=== PATIENT | female | born 1960 | race Caucasian/White ===

== ENCOUNTER 2018-11-27 22:03 | Emergency (ER) | payer MEDICARE ==
[~2018-11-27] VITALS: Ht 157.5 cm; Wt 54.4 kg
[~2018-11-27 22:03] MED LIST: ALLOPURINOL 30300 M3 PO; AMBIEN 10 MG TA10 MG PO; AMBIEN 5 MG TABL5 M1 PO; ASPIRIN81 M2 PO; ATIVAN0.5 MG PO; ATIVAN1 MG PO; AZITHROMYCIN 2250 MG PO; BENADRYL25 MG PO; COMPAZINE10 MG PO; DOXYCYCLINE 10100 M2 PO; DOXYCYCLINE 10100 MG PO; EFFEXOR XR75 MG PO; EXCEDRIN CAPLE1 EACH PO; HYDROXYZINE HCL25 M1 PO; KEPPRA 500 MG500 M1 PO; LASIX 20 MG TAB20 MG PO; LEVOTHYROXIN0.112 M1 PO; LEVOTHYROXIN0.125 M1 PO; LEVOTHYROXINE 0.1 MG PO; LEVOTHYROXINE0.05 MG PO; LISINOPRIL20 MG PO; LOPERAMIDE 2 MG2 M1 PO; LOPRESSOR25 PO; LORAZEPAM 1 MG T1 M1 PO; LYRICA100 MG PO; METAXALONE800 MG; METHADONE HCL5 MG PO; MIRTAZAPINE45 MG PO; NIFEDICAL XL30 MG PO; NORVASC10 MG PO; OXCARBAZEPINE150 MG PO; PERCOCET 5-3251 EACH PO; PERCOCET PO; PHENERGAN 25 MG25 M1 PO; PRILOSEC 20 MG20 MG PO; PROTONIX40 M4 PO; SIMVASTATIN40 MG PO; SKELAXIN 800 M800 M1 PO; TRILEPTAL150 MG PO; TRINATE TABLET1 TAB PO; VENLAFAXINE HCL75 M2 PO; VITAMIN B-1100 M1 PO; ZOFRAN4 MG PO
[2018-11-27] MEDS ORDERED: PLAVIX 75 MG TA75 MG PO (22:14)
[2018-11-27] MEDS ORDERED: EDLUAR10 MG SUBLING (22:14)
[2018-11-27] MEDS ORDERED: BENTYL 10 MG CA10 M1 PO (22:14)
[2018-11-27 22:40] LABS: ABSOLUTE LYMPHOCYTES 1.3 thou/uL (0.8-5.3); ABSOLUTE NEUTROPHILS 7.3 thou/uL (1.6-8.1); BASOPHILS 0.2 %; EOSINOPHILS 0.1 %; HEMATOCRIT 48.4 % (37.0-47.0); HEMOGLOBIN 16.6 gm/dL (12.0-15.0); LYMPHOCYTES 13.7 %; MCH 32.8 pg (26.0-34.0); MCHC 34.3 g/dL (28.0-37.0); MCV 95.8 fL (80.0-100.0); MONOCYTES 10.1 %; MPV 8.2 fl. (7.2-11.1); NUCLEATED RBCS 0 /100WBC; PLATELET COUNT* 385 thou/uL (150-400); POLYS 75.9 %; RBC 5.06 mil/uL (4.20-5.00); RDW-CV 14.4 % (10.5-14.5); WBC 9.7 thou/uL (4.0-11.0)
[2018-11-27 22:50] LABS: CALCIUM 9.4 mg/dL (8.5-10.1); CREATININE 1.1 mg/dL (0.6-1.3); POTASSIUM 3.9 mmol/L (3.5-5.1)
[2018-11-27 22:52] LABS: PROTIME 10.2 Seconds (9.20-11.50)
[2018-11-27 22:54] LABS: TOTAL PROTEIN 8.3 g/dL (6.4-8.2)
[2018-11-28 01:41] LABS: URINE BILIRUBIN NEGATIVE (Negative); URINE BLOOD NEGATIVE (Negative); URINE CLARITY CLEAR; URINE COLOR YELLOW; URINE GLUCOSE-RANDOM NEGATIVE (Negative); URINE KETONES TRACE (Negative); URINE LEUKOCYTES-REFLEX TRACE (Negative); URINE NITRITE-REFLEX NEGATIVE (Negative); URINE PROTEIN TRACE (Negative); URINE SPECIFIC GRAVITY <= 1.005 (1.005-1.030); URINE UROBILINOGEN 0.2 E.U./dl (0.2-1.0)
[2018-11-28 01:50] LABS: BACTERIA-REFLEX >30 Many /HPF (None Seen); CASTS None Seen /LPF (None Seen); CRYSTALS None Seen /LPF (None Seen); MUCUS 0-3 Light strn/LPF (None Seen); SQUAMOUS 4-10 Moderate /LPF (0-3); TRANSITIONAL EPITHEL CELL 0-3 Few /LPF (None Seen); URINE RBC 3-10 Few /HPF (0-2); URINE WBC-REFLEX 6-15 Few /HPF (0-5)
[2018-11-28] MEDS ORDERED: PROMS25 WY RECTAL (01:58)
[2018-11-28] MEDS ORDERED: CIPROFLOXACIN500 M1 PO (01:58)
[2018-11-28] MEDS ORDERED: COMPAZINE10 MG PO ×4 (01:58→02:05)
[2018-11-28] MEDS ORDERED: CARAFATE 1 GM TA1 GM PO (01:58)
[2018-11-28 02:25] VITALS: BP 136/99
--- NOTE | 2018-11-28 17:18 | EKG ---
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
== END 2018-11-28 02:25 | disposition home or self-care (01) ==
LOC: M.ERS 22:03
PROVIDERS: Emergency Medicine
DX: K29.70 Gastritis, unspecified, without bleeding (principal); N39.0 Urinary tract infection, site not specified; I10 Essential (primary) hypertension; E03.9 Hypothyroidism, unspecified; F32.9 Major depressive disorder, single episode, unspecified; F41.9 Anxiety disorder, unspecified; E78.5 Hyperlipidemia, unspecified; F17.200 Nicotine dependence, unspecified, uncomplicated; Z98.890 Other specified postprocedural states; Z88.0 Allergy status to penicillin; Z88.2 Allergy status to sulfonamides; Z88.1 Allergy status to other antibiotic agents; Z88.8 Allergy status to other drugs, medicaments and biological substances

== ENCOUNTER 2019-01-11 00:42 | Emergency (ER) | payer MEDICARE ==
[~2019-01-11] VITALS: Ht 160 cm; Wt 57.8 kg
[~2019-01-11 00:42] MED LIST changes: +BENTYL 10 MG CA10 M1 PO; +CARAFATE 1 GM TA1 GM PO; +CIPROFLOXACIN500 M1 PO; +EDLUAR10 MG SUBLING; +PLAVIX 75 MG TA75 MG PO; +PROMS25 WY RECTAL
[2019-01-11] MEDS ORDERED: KEPPRA100 MG/1 M PO (00:55)
[2019-01-11] MEDS ORDERED: LEVO-T25 MCG PO (00:55)
[2019-01-11] MEDS ORDERED: ONDANSETRON HCL4 M3 PO (00:56)
[2019-01-11 01:30] LABS: ABSOLUTE BASOPHILS 0.1 thou/uL (0.0-0.2); ABSOLUTE EOSINOPHILS 0.2 thou/uL (0.0-0.7); ABSOLUTE LYMPHOCYTES 1.5 thou/uL (0.8-5.3); ABSOLUTE MONOCYTES 0.6 thou/uL (0.0-1.2); ABSOLUTE NEUTROPHILS 2.8 thou/uL (1.6-8.1); BASOPHILS 1.1 %; EOSINOPHILS 4.7 %; HEMATOCRIT 35.6 % (37.0-47.0); LYMPHOCYTES 29.4 %; MCH 33.1 pg (26.0-34.0); MCHC 33.8 g/dL (28.0-37.0); MCV 97.9 fL (80.0-100.0); MONOCYTES 11.1 %; MPV 7.8 fl. (7.2-11.1); NUCLEATED RBCS 0 /100WBC; PLATELET COUNT* 223 thou/uL (150-400); POLYS 53.7 %; RBC 3.64 mil/uL (4.20-5.00); RDW-CV 15.5 % (10.5-14.5); WBC 5.1 thou/uL (4.0-11.0)
[2019-01-11 01:37] LABS: CREATININE 1.2 mg/dL (0.6-1.3); POTASSIUM 3.9 mmol/L (3.5-5.1)
[2019-01-11 04:43] VITALS: BP 140/109
== END 2019-01-11 04:44 | disposition home or self-care (01) ==
LOC: M.ERS 00:42
PROVIDERS: Emergency Medicine
DX: S30.1XXA Contusion of abdominal wall, initial encounter (principal); I10 Essential (primary) hypertension; Z88.0 Allergy status to penicillin; Z88.2 Allergy status to sulfonamides; Z88.1 Allergy status to other antibiotic agents; Z88.8 Allergy status to other drugs, medicaments and biological substances; W18.39XA Other fall on same level, initial encounter; Y93.89 Activity, other specified; Y92.89 Other specified places as the place of occurrence of the external cause; Y99.8 Other external cause status

== ENCOUNTER 2019-04-17 18:04 | Inpatient (IN) | payer MEDICARE, OTHER, MEDICAID ==
[~2019-04-17] VITALS: Ht 162.6 cm; Wt 62.8 kg
--- NOTE | ~2019-04-17 | CON ---
[facility] [address] [place] [address] CONSULTATION Name: JAROD GANDARA Renetta Room: [address] IN .R.#: [id number] Admission: 04/17/19 Attend Phys: Kelly Rowe Discharge: Date of : 62 Report #: [id number] THIS REPORT FOR: //name// cc: Edin Silveira MD, Bruce D. MD ~ THIS REPORT FOR: //name// CC: Edin Leonard DATE OF SERVICE: 04/19/2019 NEPHROLOGY CONSULTATION CONSULTING PHYSICIAN: Jerrica Leonard MD REASON FOR NEPHROLOGY CONSULTATION: Acute kidney injury. REASON FOR ADMISSION: Dehydration. HISTORY OF PRESENT ILLNESS: The patient is a 58-year-old female with past medical history of hypertension, VA, acute kidney injury because of dehydration in the past, TIA, Cecille-en-Y gastric bypass and hypothyroidism, has chronic nausea and diarrhea and at times vomiting, came in with generalized weakness. The patient has some chronic abdominal pain and chronic diarrhea and was not able to keep anything down. Hence, she came to the hospital and she was found to be hyponatremic, hypokalemic and an acute kidney injury. Creatinine was 3.4 on admission. Her baseline creatinine was around 1.2 in 12/2018. She was started on IV fluids and creatinine is improving. She also feels better. Renal imaging was negative. She does not take any NSAIDs at home. She does take losartan at home. REVIEW OF SYSTEMS: As mentioned in history of present illness, otherwise 10-point review of systems done, negative. ALLERGIES: TO PENICILLIN, CEPHALOSPORINS AND SULFA. Other allergies were reviewed. HOME MEDICATIONS: Include dicyclomine, clopidogrel, Keppra, levothyroxine, losartan, zolpidem, promethazine, hydroxyzine and diphenhydramine. PAST MEDICAL AND SURGICAL HISTORY: Which includes gastric bypass, hernia repair, hypertension, hypothyroidism, TIA and VA. FAMILY HISTORY: Heart disease[place] [address] CONSULTATION Name: JAROD GANDARA Room: [address] IN [facility]#: [id number] Admission: 04/17/19 Attend Phys: Kelly Rowe Discharge: Date of : 62 Report #: [id number] SOCIAL HISTORY: She smokes every day and a couple of beers a day and does not use recreational drugs. PHYSICAL EXAMINATION: VITAL SIGNS: Her blood pressure is 114/48, her respiratory rate is 18, pulse rate 61 and temperature 36.8. GENERAL: She is awake, alert and oriented x 3. HEAD AND EYES: Atraumatic, normocephalic. EARS, NOSE, AND THROAT: Normal ears and nose. Mucous membranes are dry. NECK: No JVD. CHEST: Bilaterally clear to auscultation anteriorly. No crackles or wheezing. CARDIOVASCULAR: S1, S2 normal. No murmurs heard. ABDOMEN: Scaphoid and there is abdominal scarring from prior surgeries and there are no masses, no overt tenderness, right now. EXTREMITIES: Lower extremities, there is no edema. LABORATORY DATA: Her hemoglobin is 10.7. Sodium is 138, potassium is 3.8 and creatinine is 1.6 down from 3.4 when she first came in. Other labs were reviewed. IMAGING: Head CT, abdominal/pelvic CT and chest x-ray were reviewed. ASSESSMENT: 1. Acute kidney injury in the setting of dehydration, losartan use. She has chronic nausea, vomiting and diarrhea, and a creatinine of 1.2 at baseline, was 3.4 on admission, improving with IV fluids. UA was unremarkable and renal imaging was unremarkable. There was no hydronephrosis. 2. History of Cecille-en-Y surgery and chronic nausea, vomiting and diarrhea and prone to dehydration. 3. History of hypertension. 4. Hypokalemia because of dehydration. 5. Hypokalemia because of poor oral intake. 6. History of seizure disorder. PLAN: 1. Continue with normal saline at the current rate until she is able to eat and drink well. 2. Creatinine continues to improve with IV fluids. 3. Losartan may not be a good choice of blood pressure medication for her because she is going to get dehydrated, so I will stop that. 4. If creatinine continues to improve, I will be signing off now, [place] [address] CONSULTATION Name: JAROD GANDARA Room: [address] IN M.R.#: [id number] Admission: 04/17/19 Attend Phys: Kelly Rowe Discharge: Date of : 62 Report #: [id number] with any questions. Avoid nephrotoxic agents. Discussed with the patient and the patient's nurse. By: [id number] Diaz MD /roman
[~2019-04-17 18:04] MED LIST changes: +KEPPRA100 MG/1 M PO; +LEVO-T25 MCG PO; +ONDANSETRON HCL4 M3 PO
[2019-04-17 18:05] VITALS: BP 116/67
[2019-04-17] MEDS ORDERED: COZAAR 25 MG TA25 M1 PO (18:10)
[2019-04-17] MEDS ORDERED: AMBIEN5 MG PO (18:11)
[2019-04-17 18:45] LABS: ABSOLUTE EOSINOPHILS 0.1 thou/uL (0.0-0.7); ABSOLUTE MONOCYTES 0.9 thou/uL (0.0-1.2); ABSOLUTE NEUTROPHILS 3.5 thou/uL (1.6-8.1); BASOPHILS 0.5 %; EOSINOPHILS 1.7 %; HEMATOCRIT 42.4 % (37.0-47.0); HEMOGLOBIN 14.3 gm/dL (12.0-15.0); LYMPHOCYTES 30.8 %; MCH 33.4 pg (26.0-34.0); MCHC 33.7 g/dL (28.0-37.0); MCV 99.1 fL (80.0-100.0); MONOCYTES 13.6 %; MPV 8.2 fl. (7.2-11.1); NUCLEATED RBCS 0 /100WBC; PLATELET COUNT* 276 thou/uL (150-400); POLYS 53.4 %; RBC 4.28 mil/uL (4.20-5.00); RDW-CV 14.5 % (10.5-14.5); WBC 6.6 thou/uL (4.0-11.0)
[2019-04-17 18:56] LABS: APTT 25.9 Seconds (25.0-31.3); PROTIME 10.4 Seconds (9.20-11.50)
[2019-04-17 19:09] LABS: CALCIUM 8.8 mg/dL (8.5-10.1); CREATININE 3.4 mg/dL (0.6-1.3)
[2019-04-17 19:12] LABS: POTASSIUM 2.9 mmol/L (3.5-5.1)
[2019-04-17 19:20] LABS: ALBUMIN 3.9 g/dL (3.4-5.0); TOTAL BILIRUBIN 0.5 mg/dL (<0.1-1.0)
[2019-04-17 21:50] VITALS: BP 101/41
[2019-04-17 22:00] VITALS: BP 108/44
[2019-04-18] VITALS (9 sets, daily range): BP systolic 86–131; BP diastolic 41–73
[2019-04-18 00:54] LABS: HEMATOCRIT 39.6 % (37.0-47.0); HEMOGLOBIN 13.4 gm/dL (12.0-15.0); MCH 33.4 pg (26.0-34.0); MCHC 33.8 g/dL (28.0-37.0); MCV 98.8 fL (80.0-100.0); MPV 7.6 fl. (7.2-11.1); RBC 4.01 mil/uL (4.20-5.00); RDW-CV 14.6 % (10.5-14.5); WBC 7.2 thou/uL (4.0-11.0)
[2019-04-18 01:14] LABS: ALBUMIN 3.4 g/dL (3.4-5.0); CALCIUM 8.1 mg/dL (8.5-10.1); POTASSIUM 3.6 mmol/L (3.5-5.1); TOTAL BILIRUBIN 0.3 mg/dL (<0.1-1.0); TOTAL PROTEIN 6.6 g/dL (6.4-8.2)
--- NOTE | 2019-04-18 10:10 | NUR ---
INITAL ASSESSMENT COMPLETED CHARTED. VSS. TRACING SR ON MONITOR. REFER TO COMPUTER CHARTING FOR FURTHER DETAILS. HOURLY ROUNDING ANF FALL PRECAUTIONS IN PLACE FOR PT SAFETY. CLWR.
--- NOTE | 2019-04-18 10:43 | NUR ---
CM ASSESSMENT: VISITED WITH PT IN ROOM. PT LIVES ALONE.SHE LIVES IN A HOTEL IN [place]. SHE STATES SHE HAS NO PLANS ON MOVING THIS IS A CHEAP OPTION FOR HER. 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 SHE IS INDEPENDENT WITH ADLS BUT STATES SOMETIMES SHE IS WEAK. SHE DOES NOT USE A CANE OR WALKER SHE DOES NOT WORK OR DRIVE. SHE GETS SSI. SHE IS INVOLVED IN THE [employer] AND THEY ASSIST HER WITH FOOD. STATES SHE WAS TOLD SHE DOES NOT QUALIFY FOR MEDICAID. DENIES HH OR DME NEEDS. CM WILL CONTINUE TO FOLLOW IF NEEDED
--- NOTE | 2019-04-18 11:37 | EKG ---
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1960 Requested By: Franki Gaspar Order Number: [id number] MD: Chandana Ratliff Measurements Intervals [place] Rate: 82 P: 22 VT: 140 QRS: 70 QRSD: 85 T: 72 QT: 449 QTc: 525 Interpretive Statements Sinus rhythm Possible anteroseptal infarct, old Prolonged QT interval Compared to ECG 11/27/2018 22:12:29 Myocardial infarct finding now present Electronically Signed On 04-18-2019 11:36:55 SOFTWARE TEST SPECIALIST by Chandana Ratliff [email or web address] <ELECTRONICALLY SIGNED> By: Chandana Ratliff MD, [facility] 04/18/19 1136 1826 182 Chandana Ratliff MD, [facility] /EPI
--- NOTE | 2019-04-18 13:44 | 2DMMODE ---
[place] [address] 2 D/M-MODE ECHOCARDIOGRAM Name: JAROD GANDARA Room: [address] IN .R.#: [id number] Admission: 04/17/19 Attend Phys: Jerrica Leonard Discharge: Date of : 62 Date of Service: 04/18/19 1343 Report #: [id number] THIS REPORT FOR: cc: Edin Silveira MD, Bruce D. MD Holkins,Chandana Jain MD [facility] ~ APPROVED REPORT Study performed: 04/18/2019 11:23:05 EXAM: Comprehensive 2D, Doppler, and color-flow Echocardiogram Patient Location: In-Patient Room #: [facility] Status: routine BSA: 1.61 HR: 53 bpm BP: 105/68 mmHg Rhythm: NSR Other Information Study Quality: Good Indications CAD 2D Dimensions IVSd: 9.57 (7-11mm) LVOT Diam: 18.20 (18-24mm) LVDd: 42.79 mm PWd: 8.85 (7-11mm) Ascending Ao: 28.40 (22-36mm) LVDs: 19.25 (25-40mm) Aortic Root: 27.67 mm Volumes Left Atrial Volume (Systole) LA ESV Index: 21.70 mL/m2 Aortic Valve AoV Peak Dandy.: 1.27 m/s AO Peak Gr.: 6.46 mmHg LVOT Max P.77 mmHg AO Mean Gr.: 3.36 mmHg LVOT Mean P.93 mmHg LVOT Max V: 1.20 m/s AO V2 VTI: 24.77 cm LVOT Mean V: 0.79 m/s AYESHA (VTI): 2.69 cm2 LVOT V1 VTI: 25.60 [place] [address] 2 D/M-MODE ECHOCARDIOGRAM Name: JAROD GANDARA Room: [address] IN ..#: [id number] Admission: 04/17/19 Attend Phys: Jerrica Leonard Discharge: Date of : 62 Date of Service: 04/18/19 1343 Report #: [id number] Mitral Valve E/A Ratio: 0.97 MV Decel. Time: 290.74 ms MV E Max Dandy.: 0.87 m/s MV PHT: 84.31 ms MVA (PHT): 2.61 cm2 TDI E/Lateral E': 14.50 E/Medial E': 10.88 Medial E' Dandy.: 0.08 m/s Lateral E' Dandy.: 0.06 m/s Pulmonary Valve PV Peak Dandy.: 0.68 m/s PV Peak Gr.: 1.87 mmHg Left Ventricle The left ventricle is normal size. There is normal LV segmental wall motion. There is normal left ventricular wall thickness. Left ventricular systolic function is normal. The left ventricular ejection fraction is within the normal range. LVEF is 60-65%. The left ventricular diastolic function is normal. Right Ventricle The right ventricle is normal size. The right ventricular systolic function is normal. Atria The left atrium size is normal. The right atrium size is normal. Aortic Valve The aortic valve is normal in structure. No aortic regurgitation is present. There is no aortic valvular stenosis. Mitral Valve The mitral valve is normal in structure. There is no mitral valve regurgitation noted. No evidence of mitral valve stenosis. Tricuspid Valve The tricuspid valve is normal in structure. Unable to assess PA pressure. Trace tricuspid regurgitation. Pulmonic Valve The pulmonary valve is normal in structure. There is no pulmonic [place] [address] 2 D/M-MODE ECHOCARDIOGRAM Name: JAROD GANDARA Room: [address]#: [id number] Admission: 04/17/19 Attend Phys: Jerrica Leonard Discharge: Date of : 62 Date of Service: 04/18/19 1343 Report #: [id number] Great Vessels The aortic root is normal in size. IVC is normal in size and collapses >50% with inspiration. Pericardium There is no pericardial effusion. <Conclusion> The left ventricle is normal size. There is normal left ventricular wall thickness. Left ventricular systolic function is normal. The left ventricular ejection fraction is within the normal range. LVEF is 60-65%. The left ventricular diastolic function is normal. The right ventricle is normal size. The left atrium size is normal. The aortic valve is normal in structure. The mitral valve is normal in structure. The tricuspid valve is normal in structure. IVC is normal in size and collapses >50% with inspiration. There is no pericardial effusion. There is normal LV segmental wall motion. <ELECTRONICALLY SIGNED> By: Chandana Ratliff MD, FACC 04/18/19 1343 1343 1343 Chandana Ratliff MD, FACC /INF
[2019-04-18] MEDS ORDERED: CARAFATE1 GM PO (14:28)
[2019-04-18 18:42] LABS: URINE BILIRUBIN NEGATIVE (Negative); URINE BLOOD NEGATIVE (Negative); URINE CLARITY CLEAR; URINE COLOR YELLOW; URINE GLUCOSE-RANDOM TRACE (Negative); URINE KETONES NEGATIVE (Negative); URINE LEUKOCYTES-REFLEX NEGATIVE (Negative); URINE NITRITE-REFLEX NEGATIVE (Negative); URINE PROTEIN NEGATIVE (Negative); URINE UROBILINOGEN 0.2 E.U./dl (0.2-1.0)
[2019-04-19] VITALS: BP 113/56
[2019-04-19 03:30] VITALS: BP 114/48
[2019-04-19 05:10] LABS: HEMATOCRIT 32.3 % (37.0-47.0); MCH 33.1 pg (26.0-34.0); MCHC 33.3 g/dL (28.0-37.0); MCV 99.5 fL (80.0-100.0); MPV 8.2 fl. (7.2-11.1); RBC 3.24 mil/uL (4.20-5.00); WBC 4.5 thou/uL (4.0-11.0)
[2019-04-19 05:28] LABS: HEMOGLOBIN 10.7 gm/dL (12.0-15.0)
[2019-04-19 05:32] LABS: ALBUMIN 2.4 g/dL (3.4-5.0); CALCIUM 7.2 mg/dL (8.5-10.1); CREATININE 1.6 mg/dL (0.6-1.3); POTASSIUM 3.8 mmol/L (3.5-5.1); TOTAL BILIRUBIN 0.1 mg/dL (<0.1-1.0); TOTAL PROTEIN 5.2 g/dL (6.4-8.2)
[2019-04-19 08:00] VITALS: BP 131/62
[2019-04-19 12:49] VITALS: BP 142/53
[2019-04-19 16:00] VITALS: BP 179/88
[2019-04-19 20:06] VITALS: BP 166/68
[2019-04-20] VITALS: BP 101/60; BP 138/50
[2019-04-20 03:54] VITALS: BP 121/64
[2019-04-20 05:05] LABS: CALCIUM 7.8 mg/dL (8.5-10.1); CREATININE 1.2 mg/dL (0.6-1.3); MAGNESIUM 1.9 mg/dL (1.8-2.4); POTASSIUM 4.3 mmol/L (3.5-5.1)
[2019-04-20 07:00] VITALS: BP 132/60
--- NOTE | 2019-04-20 08:16 | NUR ---
INITAL ASSESSMENT COMPLETED CHARTED. VSS, TRACING SR ON MONITOR. PT C/O CONSTANT ABDOMINAL PAIN AND DISPLAYS DRUG SEEKING BEHAVIORS. PT DENIES N/V/D. NO NEW CONCERNS AT THIS TIME. HOURLY ROUNDING IN PLACE FOR PT SAFETY. CLWR.
[2019-04-20] MEDS ORDERED: OXYCODONE HCL 55 MG PO (09:35)
[2019-04-20] MEDS ORDERED: NORVASC5 M1 PO (09:36)
[2019-04-20 10:27] VITALS: BP 132/60
== END 2019-04-20 12:06 | disposition home or self-care (01) | DRG 682 ==
LOC: M.ERS 18:04 → M.2W 20:50 → M.TBA-ER 20:50 → M.2W 22:07
PROVIDERS: Family Medicine; Internal Medicine; Nurse Practitioner Family; ADMIT Internal Medicine
DX: N17.0 Acute kidney failure with tubular necrosis (principal); G92 Toxic encephalopathy; E87.1 Hypo-osmolality and hyponatremia; F11.20 Opioid dependence, uncomplicated; A08.4 Viral intestinal infection, unspecified; N18.4 Chronic kidney disease, stage 4 (severe); F17.210 Nicotine dependence, cigarettes, uncomplicated; E87.6 Hypokalemia; E03.9 Hypothyroidism, unspecified; E86.0 Dehydration; G40.909 Epilepsy, unspecified, not intractable, without status epilepticus; I11.0 Hypertensive heart disease with heart failure; I25.10 Atherosclerotic heart disease of native coronary artery without angina pectoris; G47.00 Insomnia, unspecified; Z82.49 Family history of ischemic heart disease and other diseases of the circulatory system; Z83.3 Family history of diabetes mellitus; Z98.84 Bariatric surgery status; I25.2 Old myocardial infarction; Z79.899 Other long term (current) drug therapy; Z88.1 Allergy status to other antibiotic agents; Z88.0 Allergy status to penicillin; Z88.2 Allergy status to sulfonamides

== ENCOUNTER 2019-04-30 16:45 | Emergency (ER) | payer MEDICARE, OTHER, MEDICAID ==
[~2019-04-30] VITALS: Ht 160 cm; Wt 62.6 kg
[~2019-04-30 16:45] MED LIST changes: +AMBIEN5 MG PO; +CARAFATE1 GM PO; +COZAAR 25 MG TA25 M1 PO; +NORVASC5 M1 PO; +OXYCODONE HCL 55 MG PO
[2019-04-30] MEDS ORDERED: LIPITOR10 MG PO (16:55)
[2019-04-30 18:02] LABS: ABSOLUTE EOSINOPHILS 0.4 thou/uL (0.0-0.7); ABSOLUTE LYMPHOCYTES 1.2 thou/uL (0.8-5.3); ABSOLUTE MONOCYTES 0.5 thou/uL (0.0-1.2); ABSOLUTE NEUTROPHILS 5.8 thou/uL (1.6-8.1); BASOPHILS 0.5 %; EOSINOPHILS 4.5 %; HEMATOCRIT 37.5 % (37.0-47.0); HEMOGLOBIN 12.7 gm/dL (12.0-15.0); LYMPHOCYTES 14.8 %; MCH 32.7 pg (26.0-34.0); MCHC 33.8 g/dL (28.0-37.0); MCV 96.8 fL (80.0-100.0); MONOCYTES 6.9 %; MPV 8.3 fl. (7.2-11.1); NUCLEATED RBCS 0 /100WBC; PLATELET COUNT* 400 thou/uL (150-400); POLYS 73.3 %; RBC 3.87 mil/uL (4.20-5.00); RDW-CV 13.7 % (10.5-14.5)
[2019-04-30 18:16] LABS: CALCIUM 8.3 mg/dL (8.5-10.1); CREATININE 1.1 mg/dL (0.6-1.3); POTASSIUM 4.3 mmol/L (3.5-5.1)
[2019-04-30 18:18] LABS: APTT 24.3 Seconds (25.0-31.3)
[2019-04-30 18:27] LABS: ALBUMIN 3.2 g/dL (3.4-5.0); TOTAL BILIRUBIN 0.2 mg/dL (<0.1-1.0); TOTAL PROTEIN 6.9 g/dL (6.4-8.2)
[2019-04-30 19:15] LABS: URINE BILIRUBIN NEGATIVE (Negative); URINE BLOOD NEGATIVE (Negative); URINE CLARITY CLEAR; URINE COLOR YELLOW; URINE GLUCOSE-RANDOM NEGATIVE (Negative); URINE KETONES NEGATIVE (Negative); URINE LEUKOCYTES-REFLEX TRACE (Negative); URINE NITRITE-REFLEX NEGATIVE (Negative); URINE PROTEIN NEGATIVE (Negative); URINE SPECIFIC GRAVITY 1.015 (1.005-1.030); URINE UROBILINOGEN 0.2 E.U./dl (0.2-1.0)
[2019-04-30 19:29] LABS: BACTERIA-REFLEX >30 Many /HPF (None Seen); CASTS None Seen /LPF (None Seen); SQUAMOUS 4-10 Moderate /LPF (0-3); URINE RBC 3-10 Few /HPF (0-2); WBC CLUMPS Few (None Seen)
[2019-04-30 19:30] LABS: CRYSTALS None Seen /LPF (None Seen)
[2019-04-30] MEDS ORDERED: MACROBID 100 M100 M1 PO (20:44)
[2019-04-30 21:10] VITALS: BP 144/67
--- NOTE | 2019-05-01 11:53 | EKG ---
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1960 Requested By: Mariluz Basilio Order Number: [id number] MD: Armando Ramos Measurements Intervals [place] Rate: 63 P: 47 CT: 167 QRS: 77 QRSD: 73 T: 78 QT: 472 QTc: 484 Interpretive Statements Sinus rhythm Borderline low voltage, extremity leads Anteroseptal infarct, old Compared to ECG 04/17/2019 18:26:09 Myocardial infarct finding still present Electronically Signed On 05-01-2019 11:52:27 CONTACT LENS CURVE GRINDER by Armando Ramos [email or web address] <ELECTRONICALLY SIGNED> By: Armando Ramos MD, FAC 05/01/19 1152 1755 1755 Armando Ramos MD, [facility] /EPI
== END 2019-04-30 21:11 | disposition home or self-care (01) ==
LOC: M.ERS 16:45
PROVIDERS: Nurse Practitioner Family
DX: S90.412A Abrasion, left great toe, initial encounter (principal); K92.1 Melena; N39.0 Urinary tract infection, site not specified; R19.7 Diarrhea, unspecified; R21 Rash and other nonspecific skin eruption; I10 Essential (primary) hypertension; E03.9 Hypothyroidism, unspecified; F17.210 Nicotine dependence, cigarettes, uncomplicated; Z86.73 Personal history of transient ischemic attack (TIA), and cerebral infarction without residual deficits; Z88.0 Allergy status to penicillin; Z88.2 Allergy status to sulfonamides; Z88.8 Allergy status to other drugs, medicaments and biological substances; X58.XXXA Exposure to other specified factors, initial encounter; Y93.89 Activity, other specified; Y92.89 Other specified places as the place of occurrence of the external cause; Y99.8 Other external cause status

== ENCOUNTER 2019-07-11 21:04 | Inpatient (IN) | payer MEDICARE, MEDICAID ==
[~2019-07-11] VITALS: Ht 157.5 cm; Wt 58.1 kg
--- NOTE | ~2019-07-11 | CON ---
[address] [address] CONSULTATION Name: JAROD GANDARA Renetta Room: [address] IN .R.#: [id number] Admission: 07/12/19 Attend Phys: Leana Ricketts MD Discharge: Date of : 62 Report #: [id number] THIS REPORT FOR: //name// cc: CHICO Moreno family physician/PCP CHICO Moreno family physician/PCP ~ THIS REPORT FOR: //name// CC: [facility] physician/PCP Leana Ricketts DATE OF SERVICE: 07/12/2019 REASON FOR CONSULT: Intractable nausea and vomiting. HISTORY OF PRESENT ILLNESS: This is a 59-year-old female with significant medical history who reports that she has had gastric bypass, mainly due to her recurrent obstructions. She has had gastroesophageal reflux disease and slow digestion. She is on pantoprazole 40 mg b.i.d. and Carafate 1 gram p.o. t.i.d. at home on regular basis. She reports that she has been really sick to her stomach for the past couple of days and since she has not been able to take her medications, especially her thyroid and anti-seizure medication, this prompted her to come to hospital. She currently lying in bed, appears comfortable. She reports that her last BM was yesterday and was normal. The patient also reports that she has had a stroke a year ago and a year before that she has had endoscopic evaluation, but does not recall the results. She currently denies hematemesis, melena and hematochezia. She also denies dysphagia, odynophagia and as I mentioned before, she is on medication for GERD. PAST MEDICAL HISTORY: Significant for history of renal failure, gastric surgery, seizure disorder, CVA, anxiety disorder, hypothyroidism, recurrent nausea and vomiting, hyperlipidemia, neuropathy, coronary artery disease status post AR, hypertension and hernia repair. ALLERGIES: SIGNIFICANT TO CEPHALOSPORINS, BACLOFEN, LORABID, PENICILLIN AND SULFA. SOCIAL HISTORY: The patient has had a CVA a year ago. Lives at home. Denies tobacco or alcohol use. FAMILY HISTORY: Noncontributory. PHYSICAL EXAMINATION: VITAL SIGNS: Reveals blood pressure of 127/85, respirations 17, pulse 84, [place] [address] CONSULTATION Name: JAROD GANDARA Room: [address]#: [id number] Admission: 07/12/19 Attend Phys: Leana Ricketts MD Discharge: Date of : 62 Report #: [id number] temperature 98.4. LUNGS: Clear. CARDIOVASCULAR: Regular. ABDOMEN: Soft, mildly tender in the left upper quadrant. Bowel sounds are positive. NEUROLOGIC: The patient is alert and oriented x 3. LABORATORY DATA: Reveal sodium of 140, potassium 2.9, BUN is 8, creatinine 0.8, glucose is 105, total bilirubin is 0.4, alkaline phosphatase is 307, ALT is 22. WBC is 8.4 with hemoglobin of 14.8 and platelets of 388. IMAGING: CT of abdomen and pelvis was obtained on admission. This was significant for distended urinary bladder, left paraaortic and retroperitoneal mass, possibly an adrenal. Note that this has been stable since 2016. The spleen and pancreas appeared normal. The biliary duct dilation is notable, but may be secondary to her previous history of laparoscopic cholecystectomy. There is a tiny calcification at the head of the pancreas with no apparent mass. ASSESSMENT AND PLAN: The patient with a history of CVA a year ago, who reports slow digestion and is on Carafate and Protonix. We will continue Carafate and Protonix and consider putting her on a motility agent. I will also give her a scopolamine patch to help her with nausea. In reference to her dilation of the common bile duct, she will require endoscopic ultrasound, which we will set as outpatient. If her symptoms do not settle by Sunday, we will consider an upper endoscopy. By: [id number] Hallman MD /roman
[~2019-07-11 21:04] MED LIST changes: +LIPITOR10 MG PO; +MACROBID 100 M100 M1 PO
[2019-07-11 21:05] VITALS: BP 227/122
[2019-07-11] MEDS ORDERED: BUSPIRONE HCL10 MG PO (21:21)
[2019-07-11 21:40] LABS: HEMATOCRIT 43.5 % (37.0-47.0); HEMOGLOBIN 14.8 gm/dL (12.0-15.0); MCH 32.3 pg (26.0-34.0); MCHC 34.1 g/dL (28.0-37.0); MCV 94.6 fL (80.0-100.0); MPV 7.4 fl. (7.2-11.1); NUCLEATED RBCS 0 /100WBC; PLATELET COUNT* 388 thou/uL (150-400); RDW-CV 16.1 % (10.5-14.5); WBC 8.4 thou/uL (4.0-11.0)
[2019-07-11 22:02] LABS: ABSOLUTE LYMPHOCYTES 0.7 thou/uL (0.8-5.3); ABSOLUTE MONOCYTES 0.3 thou/uL (0.0-1.2); ABSOLUTE NEUTROPHILS 7.4 thou/uL (1.6-8.1); CALCIUM 8.7 mg/dL (8.5-10.1); PLATELET ESTIMATE ADEQUATE; POTASSIUM 3.4 mmol/L (3.5-5.1); TOXIC GRANULATION 1+
[2019-07-11 22:04] LABS: ANISOCYTOSIS Occasional
[2019-07-11 22:07] LABS: ALBUMIN 3.7 g/dL (3.4-5.0); TOTAL BILIRUBIN 0.4 mg/dL (<0.1-1.0); TOTAL PROTEIN 7.9 g/dL (6.4-8.2)
[2019-07-11 22:42] LABS: URINE BILIRUBIN NEGATIVE (Negative); URINE BLOOD NEGATIVE (Negative); URINE CLARITY CLEAR; URINE COLOR STRAW; URINE GLUCOSE-RANDOM NEGATIVE (Negative); URINE KETONES NEGATIVE (Negative); URINE LEUKOCYTES-REFLEX NEGATIVE (Negative); URINE NITRITE-REFLEX NEGATIVE (Negative); URINE PROTEIN NEGATIVE (Negative); URINE UROBILINOGEN 0.2 E.U./dl (0.2-1.0)
[2019-07-11 22:50] LABS: AMP/METHAMP Negative (Negative); BARBITURATES Negative (Negative); BENZODIAZEPINES Negative (Negative); COCAINE Negative (Negative); METHADONE Negative (Negative); OPIATES Negative (Negative); PCP Negative (Negative); THC Negative (Negative)
--- NOTE | 2019-07-11 23:36 | NUR ---
PATIENT DOES NOT WANT TO HAVE CT DONE. DR MOORE NOTIFIED AT THIS TIME.
[2019-07-12 04:00] VITALS: BP 152/74
--- NOTE | 2019-07-12 04:00 | NUR ---
PT ADMITTED TO FLOOR PER CART ACCOMPANIED BY ER STAFF WITH BELONGINGS. AMBULATES FROM CART TO BED WITH CANE AND SBA. PT CO LLQ ABD PAIN 8/10, BUT FALLS ASLEEP IN BETWEEN SENTENCES. VITAL SIGNS OBTAINED, ASSESSMENT PERFORMED, SEE ADMIT NOTES. PT REQUESTING PAIN MEDS BUT DROWSY, WILL CONTINUE TO MONITOR AND PROVIDE CARES NEEDED. ORIENTED TO ROOM AND CALL LITE, BED ALARM ON FOR SAFETY.
[2019-07-12 04:13] VITALS: BP 193/107
[2019-07-12 04:15] VITALS: BP 152/74
[2019-07-12] MEDS ORDERED: PROTONIX40 M2 PO (04:43)
--- NOTE | 2019-07-12 06:10 | NUR ---
PT SLEPT WELL SINCE ADMISSION, REQUESTING AND RECEIVED IV PAIN AND NAUSEA MED THIS MORNING WITH GOOD RESULT.NPO, PT VERBALIZES UNDERSTANDING. GI CONSULT. IVF INFUSING PER PUMP WITHOUT DIFFICULTY. CALL LITE IN EASY REACH, BED ALAMR ON FOR SAFETY.
[2019-07-12 07:40] VITALS: BP 127/85
[2019-07-12 12:07] LABS: CALCIUM 8.5 mg/dL (8.5-10.1); CREATININE 0.8 mg/dL (0.6-1.3); MAGNESIUM 1.8 mg/dL (1.8-2.4)
[2019-07-12 12:15] LABS: POTASSIUM 2.9 mmol/L (3.5-5.1)
[2019-07-12 15:49] VITALS: BP 168/99
--- NOTE | 2019-07-12 18:47 | NUR ---
PT A&OX4 VSS. PT ADMITTED THIS AM ON NOC SHIFT. PT UP SBA W/CANE GAIT STEADY. GI CONSULTED BY [facility] SHIFT RN THIS AM APPROX 0700. PT NPO AT BEGINNING OF SHIFT, DIET ADVANCED THIS AFTERNOON TO CLEARES. PT CONTINENT POF B/B. IV TO SANDRA PATENT, DRESSING C/D/I. IV ERYTHROMICIN ORDERED THIS AFTERNOON. PT WANTS MORE PAIN MEDICATION. SCOPALIMINE PATCH PLACED BEHIND R EAR. POTASSIUM REPLACEMENT PROTOCOL ADMINISTERED THIS SHIFT TO ADDRESS K+ OF 2.9. THIS CRITICAL RESULT WAS VERBALLY REPORTED TO DR BROWN THIS AM HE WAS ON THE UNIT. 3RD DOSE ADMINISTERED AND LAB TO BE REDRAWN ON [facility] SHIFT. PT TOLERATED CLEARS AT DINNER, NO REPORT OF N/V AT THIS TIME. PT RESTING IN BED WITH CALL LIGHT IN REACH. WILL CONTINUE TO MONITOR.
[2019-07-12 20:00] VITALS: BP 138/81
--- NOTE | 2019-07-13 04:24 | NUR ---
PT RESTED WELL THROUGHOUT HOURLY ROUNDS PO MEDICATION AND IV MEDICATION TAKEN AND TOLERATED. ZOFRAN GIVEN ONCE THIS SHIFT.REFUSED TYLENOL FOR PAIN. PT TOLERATED PO FLUIDS OF ZUNI SODA .
[2019-07-13 07:50] VITALS: BP 149/78
[2019-07-13 17:00] VITALS: BP 176/98
--- NOTE | 2019-07-13 18:33 | NUR ---
PT A&OX4 VSS. PT CONTINUES TO C/O PAIN AND REQUEST MEDS REGULARLY. PT DRINKS MULTIPLE SODAS AND WATER W/O VOMITING. PT CONTINUES TO C/O NAUSEA. PT HAS SCOPALOMINE PATCH IN PLACE AND PO ZOFRAN ADMINISTERED INDICATED. IV FLUIDS DC'D PER DR NICHOLSON. PT UP AD DELIO W/CANE. GAIT STEADY. PT FOUND AMBULATING IN MERCEDES THIS AFTERNOON. PT DIET ADVANCED FROM CLEARS TO SOFT-FIBER. NO EPISODES OF VOMITING THIS SHIFT REPORTED BY PT. PT REMAINS CONTINENT OF B/B. IV ERYTHROMYCIN CONTINUES ORDERED. PRN OXYCODONE ORDERED PER PT REQUEST. PT C/O PAIN/BURNING FROM IV, PT STATES PAIN IS "UNBEARABLE". PT HOWEVER DECLINES HAVING IV ACCESS DISCONTINUED. IV ASSESSED BY THIS NURSE WELL EMILY MUSTAFA FROM ER. IV TO SANDRA FLUSHES W/O DIFFICULTY. NO REDNESS, SWELLING OR DISCOLORATION OBSERVED AT SITE. PT RESTING IN ROOM WITH CALL LIGHT IN REACH. WILL CONTINUE TO MONITOR. DISCOLORATION OBSERVED AT SITE.
[2019-07-13 20:15] VITALS: BP 100/77
--- NOTE | 2019-07-14 02:10 | NUR ---
ASSUMED CARE FROM DAY SHIFT PT C/O NAUSEA BUT IS EQUESTING ICE CREAM AND PEANUT BUTTER AND CRACKER ,EATING AND TOLERATING WELL WITHOUT EMESIS. PT ALSO REQUESTING PAIN MEDICATON FOR ABD PAIN. AWAKEN DURING THE NIGHT AFTER SLEEPING PILL GIVEN. WILL CONITNUE WITH CURRENT PLAN OF CARE.
[2019-07-14 08:17] VITALS: BP 141/100
[2019-07-14] MEDS ORDERED: ERYTHROMYCIN250 M1 PO (13:35)
[2019-07-14] MEDS ORDERED: TRANSDERM-SCOP1 EACH TRANSDERM (13:38)
[2019-07-14 13:49] VITALS: BP 141/100
--- NOTE | 2019-07-14 14:29 | NUR ---
PT DISCHARGED ABOUT 1420 BY WHEELCHAIR WITH NURSING STAFF AND FRIEND. IV OUT. PERSONAL ITEMS SENT WITH PT. PT STABLE UPON DISCHARGE. PRESCRIPTIONS CALLED INTO PHARMACY.
--- NOTE | 2019-07-14 17:00 | EKG ---
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1960 Requested By: Juana Chew Order Number: [id number] Katya MD: Rodney Kwok Measurements Intervals [place] Rate: 115 P: 81 [place]: 153 QRS: 77 QRSD: 84 T: 64 QT: 338 QTc: 468 Interpretive Statements Sinus tachycardia Atrial premature complex Anterior infarct, old Compared to ECG 04/30/2019 17:55:31 Atrial premature complex(es) now present Sinus rhythm no longer present Myocardial infarct finding still present Electronically Signed On 07-14-2019 16:59:08 CDT by Rodney Kwok [email or web address] <ELECTRONICALLY SIGNED> By: Rodney Kwok MD, FACC 07/14/19 1659 05 05 Rodney Kwok MD, FACC /EPI
== END 2019-07-14 14:31 | disposition home or self-care (01) | DRG 389 ==
LOC: M.ERS 21:04 → M.3W 07-12 00:49 → M.TBA-ER 07-12 00:49 → M.3W 07-12 03:53
PROVIDERS: Emergency Medicine; Internal Medicine; ADMIT Internal Medicine
DX: K56.609 Unspecified intestinal obstruction, unspecified as to partial versus complete obstruction (principal); N17.9 Acute kidney failure, unspecified; E87.6 Hypokalemia; E86.0 Dehydration; I10 Essential (primary) hypertension; E03.9 Hypothyroidism, unspecified; G62.9 Polyneuropathy, unspecified; F17.210 Nicotine dependence, cigarettes, uncomplicated; K21.9 Gastro-esophageal reflux disease without esophagitis; G40.909 Epilepsy, unspecified, not intractable, without status epilepticus; F41.9 Anxiety disorder, unspecified; E78.5 Hyperlipidemia, unspecified; I25.10 Atherosclerotic heart disease of native coronary artery without angina pectoris; Z72.89 Other problems related to lifestyle; Z79.01 Long term (current) use of anticoagulants; Z79.899 Other long term (current) drug therapy; Z86.73 Personal history of transient ischemic attack (TIA), and cerebral infarction without residual deficits; Z98.84 Bariatric surgery status; I25.2 Old myocardial infarction; Z88.1 Allergy status to other antibiotic agents; Z88.0 Allergy status to penicillin; Z88.2 Allergy status to sulfonamides; Z88.8 Allergy status to other drugs, medicaments and biological substances

== ENCOUNTER 2019-07-28 14:50 | Emergency (ER) | payer MEDICARE, MEDICAID ==
[~2019-07-28] VITALS: Ht 160 cm; Wt 55.3 kg
[~2019-07-28 14:50] MED LIST changes: +BUSPIRONE HCL10 MG PO; +ERYTHROMYCIN250 M1 PO; +PROTONIX40 M2 PO; +TRANSDERM-SCOP1 EACH TRANSDERM
[2019-07-28] MEDS ORDERED: KEPPRA 500 MG500 M1 PO (15:00)
[2019-07-28 15:25] LABS: ABSOLUTE BASOPHILS 0.1 thou/uL (0.0-0.2); ABSOLUTE EOSINOPHILS 0.1 thou/uL (0.0-0.7); ABSOLUTE LYMPHOCYTES 1.7 thou/uL (0.8-5.3); ABSOLUTE NEUTROPHILS 5.7 thou/uL (1.6-8.1); BASOPHILS 0.8 %; EOSINOPHILS 1.3 %; HEMATOCRIT 39.2 % (37.0-47.0); HEMOGLOBIN 13.8 gm/dL (12.0-15.0); LYMPHOCYTES 20.1 %; MCH 32.7 pg (26.0-34.0); MCHC 35.2 g/dL (28.0-37.0); MCV 93.1 fL (80.0-100.0); MONOCYTES 11.6 %; NUCLEATED RBCS 0 /100WBC; PLATELET COUNT* 347 thou/uL (150-400); POLYS 66.2 %; RBC 4.21 mil/uL (4.20-5.00); RDW-CV 14.4 % (10.5-14.5); WBC 8.6 thou/uL (4.0-11.0)
[2019-07-28 16:24] LABS: CALCIUM 8.4 mg/dL (8.5-10.1); CREATININE 1.2 mg/dL (0.6-1.3)
[2019-07-28 16:25] LABS: POTASSIUM 2.7 mmol/L (3.5-5.1)
[2019-07-28 16:28] LABS: TOTAL BILIRUBIN 0.3 mg/dL (<0.1-1.0); TOTAL PROTEIN 6.7 g/dL (6.4-8.2)
[2019-07-28 16:38] VITALS: BP 103/69
== END 2019-07-28 16:44 | disposition home or self-care (01) ==
LOC: M.ERS 14:50
PROVIDERS: Family Medicine
DX: R10.9 Unspecified abdominal pain (principal); G89.29 Other chronic pain; E87.6 Hypokalemia; I10 Essential (primary) hypertension; R11.2 Nausea with vomiting, unspecified; E03.9 Hypothyroidism, unspecified; F17.210 Nicotine dependence, cigarettes, uncomplicated; Z88.0 Allergy status to penicillin; Z88.2 Allergy status to sulfonamides; Z88.8 Allergy status to other drugs, medicaments and biological substances; Z79.899 Other long term (current) drug therapy; Z98.84 Bariatric surgery status

== ENCOUNTER 2019-08-05 19:23 | Emergency (ER) | payer MEDICARE, MEDICAID ==
[~2019-08-05] VITALS: Ht 160 cm; Wt 59.0 kg
[2019-08-05 19:54] LABS: ABSOLUTE BASOPHILS 0.1 thou/uL (0.0-0.2); ABSOLUTE EOSINOPHILS 0.7 thou/uL (0.0-0.7); ABSOLUTE LYMPHOCYTES 2.8 thou/uL (0.8-5.3); ABSOLUTE NEUTROPHILS 9.8 thou/uL (1.6-8.1); BASOPHILS 0.7 %; EOSINOPHILS 5.2 %; HEMATOCRIT 40.4 % (37.0-47.0); HEMOGLOBIN 13.8 gm/dL (12.0-15.0); LYMPHOCYTES 19.1 %; MCH 32.5 pg (26.0-34.0); MCV 95.5 fL (80.0-100.0); MONOCYTES 6.8 %; MPV 8.2 fl. (7.2-11.1); NUCLEATED RBCS 0 /100WBC; PLATELET COUNT* 345 thou/uL (150-400); POLYS 68.2 %; RBC 4.24 mil/uL (4.20-5.00); RDW-CV 14.6 % (10.5-14.5); WBC 14.4 thou/uL (4.0-11.0)
[2019-08-05 19:59] LABS: CALCIUM 8.1 mg/dL (8.5-10.1); CREATININE 0.9 mg/dL (0.6-1.3); POTASSIUM 4.5 mmol/L (3.5-5.1)
[2019-08-05 20:03] LABS: ALBUMIN 2.9 g/dL (3.4-5.0); TOTAL BILIRUBIN 0.3 mg/dL (<0.1-1.0); TOTAL PROTEIN 6.7 g/dL (6.4-8.2)
[2019-08-05 21:04] LABS: URINE BILIRUBIN NEGATIVE (Negative); URINE BLOOD NEGATIVE (Negative); URINE CLARITY CLEAR; URINE COLOR YELLOW; URINE GLUCOSE-RANDOM NEGATIVE (Negative); URINE KETONES NEGATIVE (Negative); URINE LEUKOCYTES-REFLEX NEGATIVE (Negative); URINE NITRITE-REFLEX NEGATIVE (Negative); URINE PROTEIN NEGATIVE (Negative); URINE SPECIFIC GRAVITY <= 1.005 (1.005-1.030); URINE UROBILINOGEN 0.2 E.U./dl (0.2-1.0)
[2019-08-05 21:11] LABS: AMP/METHAMP Negative (Negative); BARBITURATES Negative (Negative); BENZODIAZEPINES Negative (Negative); COCAINE Negative (Negative); METHADONE Negative (Negative); OPIATES Negative (Negative); PCP Negative (Negative); THC Negative (Negative)
[2019-08-05 21:44] VITALS: BP 125/79
[2019-08-05] MEDS ORDERED: NYSTATIN100000 UNI SW&SWALLOW (23:10)
== END 2019-08-05 23:15 | disposition home or self-care (01) ==
LOC: M.ERS 19:23
PROVIDERS: Emergency Medicine
DX: E86.0 Dehydration (principal); F17.210 Nicotine dependence, cigarettes, uncomplicated; I10 Essential (primary) hypertension; E03.9 Hypothyroidism, unspecified; I25.2 Old myocardial infarction; Z79.899 Other long term (current) drug therapy; Z88.0 Allergy status to penicillin; Z88.2 Allergy status to sulfonamides; Z88.8 Allergy status to other drugs, medicaments and biological substances

== ENCOUNTER 2019-08-15 20:32 | Emergency (ER) | payer MEDICARE, MEDICAID ==
[~2019-08-15] VITALS: Ht 160 cm; Wt 54.4 kg
[~2019-08-15 20:32] MED LIST changes: +NYSTATIN100000 UNI SW&SWALLOW
[2019-08-15 21:58] LABS: ABSOLUTE LYMPHOCYTES 1.2 thou/uL (0.8-5.3); ABSOLUTE MONOCYTES 0.8 thou/uL (0.0-1.2); ABSOLUTE NEUTROPHILS 8.5 thou/uL (1.6-8.1); BASOPHILS 0.4 %; EOSINOPHILS 0.3 %; HEMATOCRIT 44.7 % (37.0-47.0); HEMOGLOBIN 15.5 gm/dL (12.0-15.0); LYMPHOCYTES 11.1 %; MCH 33.4 pg (26.0-34.0); MCHC 34.7 g/dL (28.0-37.0); MCV 96.1 fL (80.0-100.0); MPV 7.5 fl. (7.2-11.1); NUCLEATED RBCS 0 /100WBC; PLATELET COUNT* 365 thou/uL (150-400); POLYS 80.2 %; RBC 4.65 mil/uL (4.20-5.00); RDW-CV 15.2 % (10.5-14.5); WBC 10.7 thou/uL (4.0-11.0)
[2019-08-15 21:59] LABS: POTASSIUM 2.9 mmol/L (3.5-5.1)
[2019-08-15 22:03] LABS: ALBUMIN 3.4 g/dL (3.4-5.0); TOTAL BILIRUBIN 0.5 mg/dL (<0.1-1.0); TOTAL PROTEIN 7.7 g/dL (6.4-8.2)
[2019-08-16 00:09] LABS: URINE BILIRUBIN NEGATIVE (Negative); URINE BLOOD NEGATIVE (Negative); URINE CLARITY CLEAR; URINE COLOR YELLOW; URINE GLUCOSE-RANDOM NEGATIVE (Negative); URINE KETONES NEGATIVE (Negative); URINE LEUKOCYTES-REFLEX NEGATIVE (Negative); URINE NITRITE-REFLEX NEGATIVE (Negative); URINE PROTEIN NEGATIVE (Negative); URINE UROBILINOGEN 0.2 E.U./dl (0.2-1.0)
[2019-08-16 00:16] LABS: AMP/METHAMP Negative (Negative); BARBITURATES Negative (Negative); BENZODIAZEPINES Negative (Negative); COCAINE Negative (Negative); METHADONE Negative (Negative); OPIATES POSITIVE (Negative); PCP Negative (Negative); THC Negative (Negative)
[2019-08-16] MEDS ORDERED: EFFER-K 20 MEQ20 ME1 PO (00:51)
[2019-08-16 02:10] VITALS: BP 160/99
== END 2019-08-16 02:31 | disposition home or self-care (01) ==
LOC: M.ERS 20:32
PROVIDERS: Personal Emergency Response Attendant
DX: E87.6 Hypokalemia (principal); R11.2 Nausea with vomiting, unspecified; I10 Essential (primary) hypertension; E03.9 Hypothyroidism, unspecified; G62.9 Polyneuropathy, unspecified; F17.210 Nicotine dependence, cigarettes, uncomplicated; Z86.73 Personal history of transient ischemic attack (TIA), and cerebral infarction without residual deficits; Z88.0 Allergy status to penicillin; Z88.2 Allergy status to sulfonamides; Z88.8 Allergy status to other drugs, medicaments and biological substances

== ENCOUNTER 2019-11-15 23:51 | Inpatient (IN) | payer MEDICARE, MEDICAID ==
[~2019-11-15] VITALS: Ht 157.5 cm; Wt 57.6 kg
--- NOTE | ~2019-11-15 | PROC ---
[address] [address] PROCEDURE REPORT Name: JAROD GANDARA Room: [address] IN M.R.#: [id number] Admission: 11/16/19 Attend Phys: Varinder Eagle MD Discharge: 11/18/19 Date of : 62 Report #: [id number] THIS REPORT FOR: //name// cc: Edin Silveira MD, Bruce D. MD ~ THIS REPORT FOR: //name// For GI report, please see the Provation report in Perceptive 7 content. By: [id number] Records Staff DARLENE /CHI
[~2019-11-15 23:51] MED LIST changes: +EFFER-K 20 MEQ20 ME1 PO
[2019-11-16 00:23] VITALS: BP 140/95
[2019-11-16] MEDS ORDERED: OXYCODONE HCL 55 MG PO (00:29)
[2019-11-16 01:10] LABS: ABSOLUTE LYMPHOCYTES 1.3 thou/uL (0.8-5.3); ABSOLUTE MONOCYTES 0.8 thou/uL (0.0-1.2); ABSOLUTE NEUTROPHILS 4.5 thou/uL (1.6-8.1); BASOPHILS 0.5 %; EOSINOPHILS 0.4 %; HEMATOCRIT 42.2 % (37.0-47.0); HEMOGLOBIN 14.5 gm/dL (12.0-15.0); LYMPHOCYTES 19.8 %; MCHC 34.5 g/dL (28.0-37.0); MCV 98.8 fL (80.0-100.0); MONOCYTES 12.1 %; MPV 7.1 fl. (7.2-11.1); NUCLEATED RBCS 0 /100WBC; PLATELET COUNT* 334 thou/uL (150-400); POLYS 67.2 %; RBC 4.27 mil/uL (4.20-5.00); RDW-CV 14.3 % (10.5-14.5); WBC 6.7 thou/uL (4.0-11.0)
[2019-11-16 02:11] LABS: CREATININE 1.3 mg/dL (0.6-1.3); POTASSIUM 3.9 mmol/L (3.5-5.1); TOTAL BILIRUBIN 0.6 mg/dL (<0.1-1.0)
[2019-11-16 02:12] LABS: ALBUMIN 2.9 g/dL (3.4-5.0)
[2019-11-16 04:37] LABS: URINE BLOOD NEGATIVE (Negative); URINE CLARITY CLEAR; URINE GLUCOSE-RANDOM NEGATIVE (Negative); URINE KETONES 1+ (Negative); URINE LEUKOCYTES-REFLEX NEGATIVE (Negative); URINE NITRITE-REFLEX NEGATIVE (Negative); URINE PROTEIN 2+ (Negative); URINE SPECIFIC GRAVITY 1.025 (1.005-1.030)
[2019-11-16 04:41] LABS: ICTOTEST (BILI CONFIRMATORY) Negative (Negative); URINE BILIRUBIN 2+ (Negative); URINE COLOR AMBER
[2019-11-16 04:47] LABS: AMP/METHAMP Negative (Negative); BARBITURATES Negative (Negative); BENZODIAZEPINES Negative (Negative); COCAINE Negative (Negative); METHADONE Negative (Negative); OPIATES POSITIVE (Negative); PCP Negative (Negative); THC Negative (Negative)
[2019-11-16 05:18] VITALS: BP 170/80
[2019-11-16 05:37] VITALS: BP 164/90
[2019-11-16 06:23] LABS: SQUAMOUS 4-10 Moderate /LPF (0-3)
[2019-11-16 06:24] LABS: BACTERIA-REFLEX None Seen /HPF (None Seen); CRYSTALS None Seen /LPF (None Seen); HYALINE CASTS 4-10 Moderate /LPF (None Seen); MUCUS 0-3 Light strn/LPF (None Seen); URINE RBC None Seen /HPF (0-2); URINE WBC-REFLEX None Seen /HPF (0-5)
[2019-11-16 08:00] VITALS: BP 150/93
--- NOTE | 2019-11-16 11:06 | EKG ---
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1960 Requested By: Ayesha Macdonald Order Number: [id number] MD: Chandana Ratliff Measurements Intervals [place] Rate: 86 P: 72 MS: 135 QRS: 73 QRSD: 93 T: 78 QT: 402 QTc: 481 Interpretive Statements Sinus rhythm Compared to ECG 07/11/2019 21:06:32 Sinus tachycardia no longer present Atrial premature complex(es) no longer present Myocardial infarct finding no longer present Electronically Signed On 11-16-2019 11:06:05 CDT by Chandana Ratliff [email or web address] <ELECTRONICALLY SIGNED> By: Chandana Ratliff MD, FAC 11/16/19 1106 0055 0055 Chandana Ratliff MD, FAC /EPI
[2019-11-16 16:00] VITALS: BP 166/86
[2019-11-16 23:00] VITALS: BP 180/92
[2019-11-17] VITALS: BP 131/68
[2019-11-17 06:32] LABS: ABSOLUTE BASOPHILS 0.1 thou/uL (0.0-0.2); ABSOLUTE EOSINOPHILS 0.2 thou/uL (0.0-0.7); ABSOLUTE LYMPHOCYTES 2.1 thou/uL (0.8-5.3); ABSOLUTE MONOCYTES 0.6 thou/uL (0.0-1.2); ABSOLUTE NEUTROPHILS 1.7 thou/uL (1.6-8.1); BASOPHILS 1.2 %; EOSINOPHILS 3.8 %; HEMATOCRIT 30.4 % (37.0-47.0); LYMPHOCYTES 45.5 %; MCH 34.3 pg (26.0-34.0); MCHC 34.5 g/dL (28.0-37.0); MCV 99.5 fL (80.0-100.0); MONOCYTES 12.4 %; MPV 7.1 fl. (7.2-11.1); NUCLEATED RBCS 0 /100WBC; POLYS 37.1 %; RBC 3.06 mil/uL (4.20-5.00); RDW-CV 13.8 % (10.5-14.5); WBC 4.6 thou/uL (4.0-11.0)
[2019-11-17 06:35] LABS: HEMOGLOBIN 10.5 gm/dL (12.0-15.0); PLATELET COUNT* 250 thou/uL (150-400)
[2019-11-17 06:41] LABS: CALCIUM 7.7 mg/dL (8.5-10.1); CREATININE 0.9 mg/dL (0.6-1.3); POTASSIUM 3.2 mmol/L (3.5-5.1)
[2019-11-17 07:30] VITALS: BP 141/69
[2019-11-17 14:44] VITALS: BP 130/75
[2019-11-17 16:04] VITALS: BP 127/74
[2019-11-18 05:16] LABS: CALCIUM 7.3 mg/dL (8.5-10.1); POTASSIUM 3.3 mmol/L (3.5-5.1)
[2019-11-18 05:17] LABS: ABSOLUTE BASOPHILS 0.1 thou/uL (0.0-0.2); ABSOLUTE EOSINOPHILS 0.2 thou/uL (0.0-0.7); ABSOLUTE MONOCYTES 0.7 thou/uL (0.0-1.2); ABSOLUTE NEUTROPHILS 3.5 thou/uL (1.6-8.1); BASOPHILS 0.8 %; EOSINOPHILS 3.1 %; HEMATOCRIT 31.4 % (37.0-47.0); HEMOGLOBIN 10.7 gm/dL (12.0-15.0); LYMPHOCYTES 30.5 %; MCH 34.1 pg (26.0-34.0); MCHC 34.2 g/dL (28.0-37.0); MCV 99.7 fL (80.0-100.0); MONOCYTES 10.3 %; MPV 7.7 fl. (7.2-11.1); NUCLEATED RBCS 0 /100WBC; PLATELET COUNT* 298 thou/uL (150-400); POLYS 55.3 %; RBC 3.15 mil/uL (4.20-5.00); RDW-CV 13.7 % (10.5-14.5); WBC 6.4 thou/uL (4.0-11.0)
[2019-11-18 07:30] VITALS: BP 135/81
[2019-11-18] MEDS ORDERED: PROTONIX40 M2 PO (08:34)
[2019-11-18] MEDS ORDERED: REGLAN 10 MG TA10 MG PO (08:34)
[2019-11-18 12:52] VITALS: BP 135/81
[2019-11-18 12:58] VITALS: BP 135/81
[2019-11-18 13:15] VITALS: BP 135/81
--- NOTE | 2019-11-19 17:06 | PATH ---
[address] [address] PATHOLOGY RPT PROCEDURE Name: DALIA BHAKTA Room: [address] M.R.#: [id number] Admission: 11/16/19 Date of : 62 Discharge: 11/18/19 Report #: [id number] Path Case #: [id number] [facility] Accession Number: [id number] . 01 Material submitted: . colon - BIOPSY OF ANASTOMOTIC ERYTHEMA . 01 Clinician provided ICD-10: K92.0 E43 . 01 Clinical history: . ACUTE ON CHRONIC ABDOMINAL PAIN WITH REPORTED [facility] . 01 Frozen section diagnosis: . . /QMS . 02 Diagnosis: Biopsy of anastomotic erythema: - Superficial fresh hemorrhage in otherwise normal gastric and small intestinal mucosal fragments. (TEX:niko; 11/19/2019) QMS 11/19/2019 1128 Local . 02 Electronically signed: . Noah Hernandez MD, Pathologist NPI- [id number] . 01 Gross description: . The specimen is received in formalin, labeled "Dalia Bhakta, biopsy of anastomotic erythema" and consists of 3 fragments of pink-griffin tissue measuring between 0.2 x 0.1 cm and 0.6 x 0.2 cm which are entirely submitted in A1. (SDY; 11/18/2019) SYU/SYU 11/18/2019 1214 Local . 02 Microscopic: . . . . 02 Pathologist provided ICD-10: K92.2 . 02 CPT . 213100 Specimen Comment: A courtesy copy of this report has been sent to [phone] [address], [place] [address] PATHOLOGY RPT PROCEDURE Name: DALIA BHAKTA Room: [address] IN [facility].#: [id number] Admission: 11/16/19 Date of : 62 Discharge: 11/18/19 Report #: [id number] Path Case #: [id number] Specimen Comment: [id number], Specimen Comment: Report sent to DR HOLLEY / DR GROSS Performed at: 01 [facility] [address], [place] [address] MD Osmar Goodman MD Phone: [phone] Performed at: 02 [facility] [address] [facility], [place], [place] [address] MD Noah Hernandez MD Phone: [phone]
== END 2019-11-18 15:30 | disposition home or self-care (01) | DRG 391 ==
LOC: M.ERS 23:51 → M.ORTHSURG 11-16 03:42 → M.TBA-ER 11-16 03:42 → M.ORTHSURG 11-16 03:42
PROVIDERS: Personal Emergency Response Attendant; ADMIT Internal Medicine; ATTEND Internal Medicine
PROC: 0DBA8ZX Excision of Jejunum, Via Natural or Artificial Opening Endoscopic, Diagnostic (ICD-10-PCS; principal; 2019-11-17)
DX: K20.9 Esophagitis, unspecified (principal); E43 Unspecified severe protein-calorie malnutrition; K92.0 Hematemesis; I10 Essential (primary) hypertension; E03.9 Hypothyroidism, unspecified; F17.200 Nicotine dependence, unspecified, uncomplicated; G62.9 Polyneuropathy, unspecified; I25.10 Atherosclerotic heart disease of native coronary artery without angina pectoris; D64.9 Anemia, unspecified; F41.9 Anxiety disorder, unspecified; F32.9 Major depressive disorder, single episode, unspecified; K44.9 Diaphragmatic hernia without obstruction or gangrene; Z20.828 Contact with and (suspected) exposure to other viral communicable diseases; I25.2 Old myocardial infarction; Z90.49 Acquired absence of other specified parts of digestive tract; Z86.73 Personal history of transient ischemic attack (TIA), and cerebral infarction without residual deficits; Z98.84 Bariatric surgery status; Z79.899 Other long term (current) drug therapy; Z88.1 Allergy status to other antibiotic agents; Z88.0 Allergy status to penicillin; Z88.2 Allergy status to sulfonamides; Z88.8 Allergy status to other drugs, medicaments and biological substances; Z68.23 Body mass index [BMI] 23.0-23.9, adult

== ENCOUNTER 2020-01-12 17:34 | Emergency (ER) | payer MEDICARE, MEDICAID ==
[~2020-01-12] VITALS: Ht 157.5 cm; Wt 54.4 kg
[~2020-01-12 17:34] MED LIST changes: +REGLAN 10 MG TA10 MG PO
[2020-01-12 18:20] LABS: ABSOLUTE BASOPHILS 0.1 thou/uL (0.0-0.2); ABSOLUTE EOSINOPHILS 0.2 thou/uL (0.0-0.7); ABSOLUTE LYMPHOCYTES 1.6 thou/uL (0.8-5.3); ABSOLUTE MONOCYTES 0.5 thou/uL (0.0-1.2); ABSOLUTE NEUTROPHILS 3.5 thou/uL (1.6-8.1); BASOPHILS 1.2 %; EOSINOPHILS 3.6 %; HEMATOCRIT 38.5 % (37.0-47.0); HEMOGLOBIN 12.9 gm/dL (12.0-15.0); LYMPHOCYTES 26.8 %; MCH 32.8 pg (26.0-34.0); MCHC 33.4 g/dL (28.0-37.0); MONOCYTES 8.5 %; MPV 7.8 fl. (7.2-11.1); NUCLEATED RBCS 0 /100WBC; POLYS 59.9 %; RBC 3.93 mil/uL (4.20-5.00); RDW-CV 15.2 % (10.5-14.5); WBC 5.9 thou/uL (4.0-11.0)
[2020-01-12 18:29] LABS: URINE BILIRUBIN NEGATIVE (Negative); URINE BLOOD NEGATIVE (Negative); URINE CLARITY CLEAR; URINE COLOR YELLOW; URINE GLUCOSE-RANDOM NEGATIVE (Negative); URINE KETONES NEGATIVE (Negative); URINE LEUKOCYTES-REFLEX NEGATIVE (Negative); URINE NITRITE-REFLEX NEGATIVE (Negative); URINE PROTEIN NEGATIVE (Negative); URINE UROBILINOGEN 0.2 E.U./dl (0.2-1.0)
[2020-01-12 18:36] LABS: CALCIUM 7.7 mg/dL (8.5-10.1); CREATININE 0.7 mg/dL (0.6-1.3); POTASSIUM 3.9 mmol/L (3.5-5.1)
[2020-01-12 18:47] LABS: ALBUMIN 2.7 g/dL (3.4-5.0); TOTAL BILIRUBIN 0.5 mg/dL (<0.1-1.0); TOTAL PROTEIN 6.1 g/dL (6.4-8.2)
[2020-01-12 19:00] LABS: PLATELET COUNT* 241 thou/uL (150-400)
[2020-01-12 19:24] LABS: PROTIME 10.3 Seconds (9.20-11.50)
[2020-01-12 21:53] VITALS: BP 132/75
--- NOTE | 2020-01-13 10:42 | EKG ---
[place] [address] ELECTROCARDIOGRAM REPORT Name: JAROD GANDARA Room: [facility]#: [id number] Admission: 01/12/20 Attend Phys: Discharge: 01/12/20 Date of : 62 Date of Service: 01/12/20 174 Report #: [id number] THIS REPORT FOR: //name// [facility] ED Test Date: 2020-01-12 Test Time: 17:43:45 Pat Name: JAROD GANDARA Department: Room: Gender: F Residential Monitor: CCD : 1960 Requested By: Franki Gaspar Order Number: [id number] MD: Rodney Kwok Measurements Intervals [place] Rate: 84 P: 3 [place]: 152 QRS: 67 QRSD: 84 T: 211 QT: 435 QTc: 515 Interpretive Statements Sinus rhythm Repol abnrm, probable ischemia, anterior lds Prolonged QT interval Compared to ECG 11/16/2019 00:55:53 Possible ischemia now present Prolonged QT interval now present Electronically Signed On 01-13-2020 10:42:26 BLOCKERS SKIVER by Rodney Kwok [email or web address] <ELECTRONICALLY SIGNED> By: Rodney Kwok MD, FACC 01/13/20 1042 1743 1743 Rodney Kwok MD, FAC /EPI
== END 2020-01-12 21:54 | disposition home or self-care (01) ==
LOC: M.ERS 17:34
PROVIDERS: Family Medicine; Nurse Practitioner Family
DX: F10.229 Alcohol dependence with intoxication, unspecified (principal); Y90.8 Blood alcohol level of 240 mg/100 ml or more; R53.1 Weakness; Z20.828 Contact with and (suspected) exposure to other viral communicable diseases; I10 Essential (primary) hypertension; E03.9 Hypothyroidism, unspecified; G62.9 Polyneuropathy, unspecified; F17.210 Nicotine dependence, cigarettes, uncomplicated; Z88.0 Allergy status to penicillin; Z88.2 Allergy status to sulfonamides; Z88.8 Allergy status to other drugs, medicaments and biological substances; Z86.73 Personal history of transient ischemic attack (TIA), and cerebral infarction without residual deficits

== ENCOUNTER 2020-02-26 19:29 | Observation (INO) | payer MEDICARE, MEDICAID ==
[~2020-02-26] VITALS: Ht 157.5 cm; Wt 60.8 kg
[2020-02-26 19:38] VITALS: BP 111/89
[2020-02-26 20:04] LABS: ABSOLUTE BASOPHILS 0.1 thou/uL (0.0-0.2); ABSOLUTE EOSINOPHILS 0.1 thou/uL (0.0-0.7); ABSOLUTE LYMPHOCYTES 2.3 thou/uL (0.8-5.3); ABSOLUTE MONOCYTES 0.5 thou/uL (0.0-1.2); ABSOLUTE NEUTROPHILS 2.6 thou/uL (1.6-8.1); EOSINOPHILS 2.5 %; HEMATOCRIT 39.2 % (37.0-47.0); HEMOGLOBIN 13.3 gm/dL (12.0-15.0); LYMPHOCYTES 41.5 %; MCH 33.6 pg (26.0-34.0); MCHC 33.9 g/dL (28.0-37.0); MCV 99.1 fL (80.0-100.0); MONOCYTES 9.6 %; MPV 7.5 fl. (7.2-11.1); NUCLEATED RBCS 0 /100WBC; PLATELET COUNT* 340 thou/uL (150-400); POLYS 45.4 %; RBC 3.96 mil/uL (4.20-5.00); RDW-CV 15.7 % (10.5-14.5); WBC 5.7 thou/uL (4.0-11.0)
[2020-02-26 20:11] LABS: CREATININE 0.9 mg/dL (0.6-1.3); POTASSIUM 3.5 mmol/L (3.5-5.1)
[2020-02-26 20:15] LABS: ALBUMIN 2.5 g/dL (3.4-5.0); MAGNESIUM 2.1 mg/dL (1.8-2.4); TOTAL BILIRUBIN 0.2 mg/dL (<0.1-1.0)
[2020-02-26 20:46] LABS: URINE BILIRUBIN NEGATIVE (Negative); URINE BLOOD NEGATIVE (Negative); URINE CLARITY CLEAR; URINE COLOR YELLOW; URINE GLUCOSE-RANDOM NEGATIVE (Negative); URINE KETONES NEGATIVE (Negative); URINE LEUKOCYTES-REFLEX NEGATIVE (Negative); URINE NITRITE-REFLEX NEGATIVE (Negative); URINE PROTEIN NEGATIVE (Negative); URINE SPECIFIC GRAVITY <= 1.005 (1.005-1.030); URINE UROBILINOGEN 0.2 E.U./dl (0.2-1.0)
[2020-02-26 22:15] LABS: AMP/METHAMP Negative (Negative); BARBITURATES Negative (Negative); BENZODIAZEPINES Negative (Negative); COCAINE Negative (Negative); METHADONE Negative (Negative); OPIATES Negative (Negative); PCP Negative (Negative); THC Negative (Negative)
[2020-02-26 23:44] VITALS: BP 130/77
[2020-02-26 23:50] VITALS: BP 145/97
[2020-02-27 04:00] VITALS: BP 130/71
[2020-02-27 08:00] VITALS: BP 109/65
[2020-02-27 12:00] VITALS: BP 134/71
[2020-02-27 17:06] VITALS: BP 134/81
[2020-02-27 20:00] VITALS: BP 140/84
[2020-02-28] VITALS: BP 135/73
[2020-02-28 04:00] VITALS: BP 103/57
[2020-02-28 05:12] LABS: CHOLESTEROL 122 mg/dL (<200); HDL CHOLESTEROL 60 mg/dL (>40); LDL CHOLESTEROL 47 mg/dL (<100); TRIGLYCERIDE 75 mg/dL (<150); VLDL 15 mg/dL (<40)
[2020-02-28 05:36] LABS: SERUM ASSESSMENT Clear
[2020-02-28 11:32] VITALS: BP 111/65
[2020-02-28] MEDS ORDERED: ASPIR 8181 MG PO (12:55)
[2020-02-28 13:12] VITALS: BP 111/65
--- NOTE | 2020-03-01 08:42 | CON ---
[address] [address] CONSULTATION Name: JAROD GANDARA Room: [address] Sandra Freeman#: [id number] Admission: 02/26/20 Attend Phys: Aaron Swartz Discharge: 02/28/20 Date of : 62 Report #: [id number] THIS REPORT FOR: cc: Edin Silveira MD, Bruce D. MD ~ Rodney Kwok MD [facility] CONSULTATION INDICATION: Elevated troponin. HISTORY OF PRESENT ILLNESS: The patient is a 59-year-old white female with a prior history of stroke approximately 2 years ago with residual left-sided weakness. She is on antiplatelet therapy for this. She denies any history of coronary artery disease. She was admitted to the hospital with a fall. Routine lab evaluation showed an elevated troponin. Her EKG shows sinus rhythm with diffuse ST segment depression. Review of her previous EKGs shows that this is a waxing and waning pattern. On occasion, her EKGs appear normal, other times she has fairly significant ST segment changes. Her troponins are 0.08, 0.07, and 0.09. At the time of my interview, she states that she had some midsternal chest discomfort that did not radiate. It is not associated with diaphoresis, nausea or shortness of breath. She has had intermittent chest pain off and on for some time, it sounds like. PAST MEDICAL HISTORY: 1. Gastric bypass surgery with hernia repair remotely. 2. Hypertension. 3. Hypothyroidism. 4. TIA/stroke. 5. Acute renal failure, remotely. 6. Neuropathy. 7. History of seizures. 8. Chronic abdominal pain with nausea and vomiting. 9. History of ulcers. 10. History of gastrectomy. 11. History of pancreatitis. FAMILY HISTORY: Positive for coronary artery disease. SOCIAL HISTORY: The patient is a daily smoker. She drinks alcohol frequently. ALLERGIES: PENICILLIN, CEPHALOSPORINS, SULFA, BACLOFEN, LORACARBEF. HOME MEDICATIONS: Plavix 75 mg daily, Keppra 500 mg b.i.d., levothyroxine 75 mcg daily, oxycodone IR 5 mg q. 6 hours p.r.n., Protonix 40 mg daily, Ambien [place] [address] CONSULTATION Name: JAROD GANADRA Room: [address] Sandra Freeman#: [id number] Admission: 02/26/20 Attend Phys: Aaron Swartz Discharge: 02/28/20 Date of : 62 Report #: [id number] PHYSICAL EXAMINATION: VITAL SIGNS: Stable. Blood pressure 130/77, pulse 85 and regular. GENERAL: This is an elderly female who does not appear to be in any distress. Mood and affect appropriate. HEENT: Extraocular muscles intact. Mucous membranes are moist. NECK: Shows no jugular venous distention. There are no carotid bruits. CHEST: Reveals diminished breath sounds with prolonged expiration. I do not appreciate wheezes or rales. CARDIOVASCULAR: Reveals a regular rhythm with normal S1 and S2. I do not appreciate gallop or murmur. ABDOMEN: Reveals normal bowel sounds. The abdomen is soft, nontender. EXTREMITIES: Shows no edema. Peripheral pulses palpable. SKIN: Dry. LABORATORY DATA: A 12-lead EKG shows sinus rhythm with diffuse ST segment depression. Chest x-ray shows no acute cardiopulmonary abnormality. IMPRESSION AND RECOMMENDATIONS: 1. Minimally elevated troponin, possibly consistent with acute coronary syndrome. She does have EKG changes that are suspicious. Review of the records show these EKG changes not to be persistent, but waxing and waning. I believe she would benefit from further evaluation with angiography. I would continue Plavix at this time. 2. Hypertension. Blood pressure appears adequately controlled at present. 3. Probable dyslipidemia. We would repeat fasting lipid profile at this time. 4. Chronic tobacco use, cessation advised. <ELECTRONICALLY SIGNED> By: Rodney Kwok MD, FACC 03/01/20 0842 1354 1433Micvaleria Kwok MD, FACC /nt
--- NOTE | 2020-03-01 13:42 | EKG ---
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 : 1960 Requested By: Juana hCew Order Number: [id number] MD: Armando Ramos Measurements Intervals [place] Rate: 79 P: -61 SC: 166 QRS: 65 QRSD: 78 T: QT: 481 QTc: 552 Interpretive Statements Sinus or ectopic atrial rhythm Probable left atrial enlargement Nonspecific T abnormalities, diffuse leads Prolonged QT interval Compared to ECG 01/12/2020 17:43:45 Ectopic atrial rhythm now present Sinus rhythm no longer present Electronically Signed On 03-01-2020 13:42:17 HEAVY DUTY TRUCK MECHANIC by Armando Ramos [email or web address] <ELECTRONICALLY SIGNED> By: Armando Ramos MD, FACC 03/01/20 1342 50 50 Armando Ramos MD, FACC /EPI
== END 2020-02-28 17:47 | disposition home or self-care (01) ==
LOC: M.ERS 19:29 → M.TBA-ER 20:54 → M.2W 22:09
PROVIDERS: Emergency Medicine; Internal Medicine Cardiovascular Disease; ADMIT Internal Medicine; ATTEND Internal Medicine
DX: R29.6 Repeated falls (principal); R53.1 Weakness; E87.1 Hypo-osmolality and hyponatremia; F10.129 Alcohol abuse with intoxication, unspecified; I63.9 Cerebral infarction, unspecified; E03.9 Hypothyroidism, unspecified; F32.9 Major depressive disorder, single episode, unspecified; F41.9 Anxiety disorder, unspecified; I10 Essential (primary) hypertension; N17.9 Acute kidney failure, unspecified; G40.909 Epilepsy, unspecified, not intractable, without status epilepticus; F17.210 Nicotine dependence, cigarettes, uncomplicated; F17.200 Nicotine dependence, unspecified, uncomplicated; Z79.899 Other long term (current) drug therapy; Z20.828 Contact with and (suspected) exposure to other viral communicable diseases; W19.XXXA Unspecified fall, initial encounter

== ENCOUNTER 2020-04-02 17:13 | Emergency (ER) | payer MEDICARE, MEDICAID ==
[~2020-04-02] VITALS: Ht 160 cm; Wt 45.4 kg
[~2020-04-02 17:13] MED LIST changes: +ASPIR 8181 MG PO
[2020-04-02 18:12] LABS: ABSOLUTE EOSINOPHILS 0.3 thou/uL (0.0-0.7); ABSOLUTE LYMPHOCYTES 1.9 thou/uL (0.8-5.3); ABSOLUTE MONOCYTES 0.3 thou/uL (0.0-1.2); BASOPHILS 0.6 %; EOSINOPHILS 4.9 %; HEMATOCRIT 40.7 % (37.0-47.0); HEMOGLOBIN 13.2 gm/dL (12.0-15.0); LYMPHOCYTES 34.7 %; MCH 33.3 pg (26.0-34.0); MCHC 32.6 g/dL (28.0-37.0); MCV 102.1 fL (80.0-100.0); MONOCYTES 5.3 %; MPV 7.7 fl. (7.2-11.1); NUCLEATED RBCS 0 /100WBC; PLATELET COUNT* 254 thou/uL (150-400); POLYS 54.5 %; RBC 3.98 mil/uL (4.20-5.00); RDW-CV 13.9 % (10.5-14.5); WBC 5.4 thou/uL (4.0-11.0)
[2020-04-02 18:16] LABS: URINE BILIRUBIN NEGATIVE (Negative); URINE BLOOD NEGATIVE (Negative); URINE CLARITY CLEAR; URINE COLOR STRAW; URINE GLUCOSE-RANDOM NEGATIVE (Negative); URINE KETONES NEGATIVE (Negative); URINE LEUKOCYTES-REFLEX NEGATIVE (Negative); URINE NITRITE-REFLEX NEGATIVE (Negative); URINE PROTEIN NEGATIVE (Negative); URINE SPECIFIC GRAVITY <= 1.005 (1.005-1.030); URINE UROBILINOGEN 0.2 E.U./dl (0.2-1.0)
[2020-04-02 18:36] LABS: PROTIME 10.2 Seconds (9.20-11.50)
[2020-04-02 18:38] LABS: AMP/METHAMP Negative (Negative); BARBITURATES Negative (Negative); BENZODIAZEPINES Negative (Negative); COCAINE Negative (Negative); METHADONE Negative (Negative); OPIATES Negative (Negative); PCP Negative (Negative); THC Negative (Negative)
[2020-04-02 18:48] LABS: CALCIUM 7.9 mg/dL (8.5-10.1)
[2020-04-02 18:53] LABS: ALBUMIN 2.4 g/dL (3.4-5.0); TOTAL BILIRUBIN 0.2 mg/dL (<0.1-1.0); TOTAL PROTEIN 5.8 g/dL (6.4-8.2)
[2020-04-02 19:37] LABS: APTT 22.8 Seconds (25.0-31.3)
[2020-04-03 01:00] VITALS: BP 145/73
--- NOTE | 2020-04-03 10:30 | EKG ---
[place] [address] ELECTROCARDIOGRAM REPORT Name: JAROD GANDARA Room: 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: JULITA : 1960 Requested By: Juan Diego Geller Order Number: [id number] MD: Alvin Gabriel Measurements Intervals [place] Rate: 73 P: 26 PA: 161 QRS: 69 QRSD: 85 T: 68 QT: 414 QTc: 457 Interpretive Statements Sinus rhythm Anterior infarct, old Borderline ST elevation, lateral leads Compared to ECG 02/26/2020 19:51:24 Myocardial infarct finding now present ST (T wave) deviation now present Ectopic atrial rhythm no longer present T-wave abnormality no longer present Prolonged QT interval no longer present Electronically Signed On 04-03-2020 10:29:51 SAFE DEPOSIT CLERK by Alvin Gabriel [email or web address] <ELECTRONICALLY SIGNED> By: Davina Gabriel MD, [facility] 04/03/20 1029 07 180 Davina Gabriel MD, [facility] /EPI
== END 2020-04-03 01:00 | disposition still patient (30) ==
LOC: M.ERS 17:13
PROVIDERS: Emergency Medicine Emergency Medical Services
DX: S60.512A Abrasion of left hand, initial encounter (principal); F10.129 Alcohol abuse with intoxication, unspecified; Y90.8 Blood alcohol level of 240 mg/100 ml or more; I10 Essential (primary) hypertension; E03.9 Hypothyroidism, unspecified; F17.210 Nicotine dependence, cigarettes, uncomplicated; Z88.0 Allergy status to penicillin; Z88.1 Allergy status to other antibiotic agents; Z88.2 Allergy status to sulfonamides; Z88.8 Allergy status to other drugs, medicaments and biological substances; Z86.73 Personal history of transient ischemic attack (TIA), and cerebral infarction without residual deficits; Z79.899 Other long term (current) drug therapy; W18.39XA Other fall on same level, initial encounter; Y93.89 Activity, other specified; Y92.89 Other specified places as the place of occurrence of the external cause; Y99.8 Other external cause status

== ENCOUNTER 2020-04-04 13:22 | Inpatient (IN) | payer MEDICARE, MEDICAID ==
[~2020-04-04] VITALS: Ht 160 cm; Wt 59.9 kg
[2020-04-04 13:24] VITALS: BP 71/49
[2020-04-04 15:24] LABS: ABSOLUTE EOSINOPHILS 0.1 thou/uL (0.0-0.7); ABSOLUTE LYMPHOCYTES 1.8 thou/uL (0.8-5.3); ABSOLUTE MONOCYTES 0.6 thou/uL (0.0-1.2); ABSOLUTE NEUTROPHILS 3.4 thou/uL (1.6-8.1); BASOPHILS 0.7 %; HEMATOCRIT 30.7 % (37.0-47.0); LYMPHOCYTES 29.9 %; MCH 33.9 pg (26.0-34.0); MCHC 33.8 g/dL (28.0-37.0); MCV 100.4 fL (80.0-100.0); MONOCYTES 9.7 %; NUCLEATED RBCS 0 /100WBC; PLATELET COUNT* 245 thou/uL (150-400); POLYS 57.7 %; RBC 3.06 mil/uL (4.20-5.00); RDW-CV 13.8 % (10.5-14.5); WBC 5.9 thou/uL (4.0-11.0)
[2020-04-04 15:29] LABS: HEMOGLOBIN 10.4 gm/dL (12.0-15.0)
[2020-04-04 15:35] LABS: CALCIUM 8.4 mg/dL (8.5-10.1); CREATININE 1.1 mg/dL (0.6-1.3); POTASSIUM 3.3 mmol/L (3.5-5.1)
[2020-04-04 15:37] LABS: APTT 22.8 Seconds (25.0-31.3); PROTIME 11.1 Seconds (9.20-11.50)
[2020-04-04 15:45] LABS: ALBUMIN 2.2 g/dL (3.4-5.0); MAGNESIUM 1.7 mg/dL (1.8-2.4); TOTAL BILIRUBIN 0.7 mg/dL (<0.1-1.0)
[2020-04-04 20:37] VITALS: BP 119/60
[2020-04-04 21:00] VITALS: BP 98/42
[2020-04-05] VITALS: BP 91/46
[2020-04-05 04:00] VITALS: BP 80/44
[2020-04-05 04:44] LABS: HEMOGLOBIN 8.5 gm/dL (12.0-15.0); MCH 33.5 pg (26.0-34.0); MCHC 32.7 g/dL (28.0-37.0); MCV 102.5 fL (80.0-100.0); MPV 8.3 fl. (7.2-11.1); RBC 2.54 mil/uL (4.20-5.00); RDW-CV 14.2 % (10.5-14.5)
[2020-04-05 05:21] LABS: ALBUMIN 1.8 g/dL (3.4-5.0); CALCIUM 7.2 mg/dL (8.5-10.1); CREATININE 0.9 mg/dL (0.6-1.3); MAGNESIUM 1.5 mg/dL (1.8-2.4); POTASSIUM 3.5 mmol/L (3.5-5.1); TOTAL BILIRUBIN 0.3 mg/dL (<0.1-1.0); TOTAL PROTEIN 4.3 g/dL (6.4-8.2)
[2020-04-05 08:00] VITALS: BP 109/51
[2020-04-05 11:06] LABS: URINE BILIRUBIN NEGATIVE (Negative); URINE BLOOD NEGATIVE (Negative); URINE CLARITY CLEAR; URINE COLOR YELLOW; URINE GLUCOSE-RANDOM NEGATIVE (Negative); URINE KETONES NEGATIVE (Negative); URINE LEUKOCYTES-REFLEX NEGATIVE (Negative); URINE NITRITE-REFLEX NEGATIVE (Negative); URINE PROTEIN NEGATIVE (Negative)
[2020-04-05 11:14] LABS: AMP/METHAMP Negative (Negative); BARBITURATES Negative (Negative); BENZODIAZEPINES Negative (Negative); COCAINE Negative (Negative); METHADONE Negative (Negative); OPIATES POSITIVE (Negative); PCP Negative (Negative); THC Negative (Negative)
[2020-04-05 12:00] VITALS: BP 91/45
--- NOTE | 2020-04-05 15:35 | 2DMMODE ---
[place] [address] 2 D/M-MODE ECHOCARDIOGRAM Name: JAROD GANDARA Room: [address] IN .R.#: [id number] Admission: 04/04/20 Attend Phys: Leana Ricketts, Discharge: Date of : 62 Date of Service: 04/05/20 1534 Report #: [id number] THIS REPORT FOR: cc: Edin Silveira MD, Bruce D. MD Holkins,Chandana Jain MD [facility] ~ APPROVED REPORT Study performed: 04/05/2020 14:11:41 EXAM: Comprehensive 2D, Doppler, and color-flow Echocardiogram Patient Location: In-Patient Room #: [facility] Status: routine BSA: 1.62 HR: 39 bpm BP: 109/51 mmHg Rhythm: NSR Other Information Study Quality: Good Indications Syncope 2D Dimensions IVSd: 13.11 (7-11mm) LVOT Diam: 17.62 (18-24mm) LVDd: 25.40 mm PWd: 10.66 (7-11mm) Ascending Ao: 27.90 (22-36mm) LVDs: 15.65 (25-40mm) Aortic Root: 27.47 mm Volumes Left Atrial Volume (Systole) LA ESV Index: 28.50 mL/m2 Aortic Valve AoV Peak Dandy.: 1.09 m/s AO Peak Gr.: 4.79 mmHg LVOT Max P.32 mmHg AO Mean Gr.: 2.29 mmHg LVOT Mean P.91 mmHg LVOT Max V: 1.04 m/s AO V2 VTI: 24.87 cm LVOT Mean V: 0.63 m/s AYESHA (VTI): 2.35 cm2 LVOT V1 VTI: 23.96 [place] [address] 2 D/M-MODE ECHOCARDIOGRAM Name: JAROD GANDARA Room: [address] IN [facility]#: [id number] Admission: 04/04/20 Attend Phys: Leana Ricketts, Discharge: Date of : 62 Date of Service: 04/05/20 1534 Report #: [id number] Mitral Valve E/A Ratio: 1.50 MV Decel. Time: 174.04 ms MV E Max Dandy.: 1.00 m/s MV PHT: 50.47 ms MVA (PHT): 4.36 cm2 TDI E/Lateral E': 14.29 E/Medial E': 12.50 Medial E' Dandy.: 0.08 m/s Lateral E' Dandy.: 0.07 m/s Pulmonary Valve PV Peak Dandy.: 0.61 m/s PV Peak Gr.: 1.47 mmHg Tricuspid Valve RAP Estimate: 5.00 mmHg TR Peak Gr.: 16.80 mmHg RVSP: 21.00 mmHg PA Pressure: 21.00 mmHg Left Ventricle The left ventricle is normal size. There is normal LV segmental wall motion. There is normal left ventricular wall thickness. Left ventricular systolic function is normal. The left ventricular ejection fraction is within the normal range. LVEF is 55-60%. The left ventricular diastolic function is normal. Right Ventricle The right ventricle is normal size. The right ventricular systolic function is normal. Atria The left atrium size is normal. The right atrium size is normal. Aortic Valve Mild aortic valve sclerosis. No aortic regurgitation is present. There is no aortic valvular stenosis. Mitral Valve The mitral valve is normal in structure. Mild mitral regurgitation. No evidence of mitral valve stenosis. Tricuspid Valve The tricuspid valve is normal in structure. Mild tricuspid regurgitation. [place] [address] 2 D/M-MODE ECHOCARDIOGRAM Name: JAROD GANDARA Room: [address]#: [id number] Admission: 04/04/20 Attend Phys: Leana Ricketts, Discharge: Date of : 62 Date of Service: 04/05/20 1534 Report #: [id number] Pulmonic Valve The pulmonary valve is normal in structure. There is no pulmonic valvular regurgitation. Great Vessels The aortic root is normal in size. IVC is normal in size and collapses >50% with inspiration. Pericardium There is no pericardial effusion. <Conclusion> The left ventricle is normal size. There is normal left ventricular wall thickness. Left ventricular systolic function is normal. The left ventricular ejection fraction is within the normal range. LVEF is 55-60%. The left ventricular diastolic function is normal. The right ventricle is normal size. The left atrium size is normal. Mild aortic valve sclerosis. No aortic regurgitation is present. There is no aortic valvular stenosis. The mitral valve is normal in structure. Mild mitral regurgitation. The tricuspid valve is normal in structure. Mild tricuspid regurgitation. No pulmonary hypertension. IVC is normal in size and collapses >50% with inspiration. There is no pericardial effusion. There is normal LV segmental wall motion. <ELECTRONICALLY SIGNED> By: Chandana Ratliff MD, FACC 04/05/20 1534 1534 1534 Chandana Ratliff MD, FACC /INF
[2020-04-05 16:00] VITALS: BP 152/81
--- NOTE | 2020-04-05 17:06 | EKG ---
[place] [address] ELECTROCARDIOGRAM REPORT Name: JAROD GANDARA Room: [address] IN .R.#: [id number] Admission: 04/04/20 Attend Phys: Leana Ricketts, Discharge: Date of : 62 Date of Service: 04/04/20 1329 Report #: [id number] THIS REPORT FOR: //name// [facility] ED Test Date: 2020-04-04 Test Time: 13:29:38 Pat Name: JAROD GANDARA Department: Room: [facility] Gender: F Business Banking Manager: : 1960 Requested By: Juan Diego Geller Order Number: [id number] MD: Chandana Ratliff Measurements Intervals [place] Rate: 53 P: 36 IN: 141 QRS: 74 QRSD: 103 T: 90 QT: 577 QTc: 542 Interpretive Statements Sinus rhythm Anteroseptal infarct, age indeterminate possible Lateral leads are also involved Prolonged QT interval Compared to ECG 04/02/2020 18:08:13 Prolonged QT interval now present Anteroseptal ST-T abnormalities have evolved Myocardial infarct finding still present Electronically Signed On 04-05-2020 17:06:00 DIRECTOR OF OCCUPATIONAL HEALTH by Chandana Ratliff [email or web address] <ELECTRONICALLY SIGNED> By: Chandana Ratliff MD, [facility] 04/05/20 1706 1329 1329 Chandana Ratliff MD, [facility] /EPI
[2020-04-05 20:00] VITALS: BP 127/73
[2020-04-06] VITALS: BP 140/86
[2020-04-06 04:00] VITALS: BP 102/54
[2020-04-06 05:03] LABS: ABSOLUTE EOSINOPHILS 0.3 thou/uL (0.0-0.7); ABSOLUTE LYMPHOCYTES 1.5 thou/uL (0.8-5.3); ABSOLUTE MONOCYTES 0.4 thou/uL (0.0-1.2); ABSOLUTE NEUTROPHILS 3.3 thou/uL (1.6-8.1); BASOPHILS 0.5 %; EOSINOPHILS 4.8 %; HEMATOCRIT 27.6 % (37.0-47.0); HEMOGLOBIN 9.2 gm/dL (12.0-15.0); LYMPHOCYTES 27.3 %; MCH 33.6 pg (26.0-34.0); MCHC 33.4 g/dL (28.0-37.0); MCV 100.6 fL (80.0-100.0); MONOCYTES 7.1 %; MPV 8.4 fl. (7.2-11.1); NUCLEATED RBCS 0 /100WBC; PLATELET COUNT* 235 thou/uL (150-400); POLYS 60.3 %; RBC 2.75 mil/uL (4.20-5.00); RDW-CV 13.6 % (10.5-14.5); WBC 5.5 thou/uL (4.0-11.0)
[2020-04-06 05:42] LABS: ALBUMIN 1.8 g/dL (3.4-5.0); CALCIUM 7.6 mg/dL (8.5-10.1); CREATININE 0.8 mg/dL (0.6-1.3); POTASSIUM 3.6 mmol/L (3.5-5.1); TOTAL BILIRUBIN 0.3 mg/dL (<0.1-1.0); TOTAL PROTEIN 4.4 g/dL (6.4-8.2)
[2020-04-06 08:00] VITALS: BP 145/84
[2020-04-06 11:34] VITALS: BP 145/84
[2020-04-06] MEDS ORDERED: FOLIC ACID1 MG PO (11:34)
[2020-04-06] MEDS ORDERED: VITAMIN B-1100 M2 PO (11:35)
--- NOTE | 2020-04-07 14:57 | CON ---
[facility] [address] [place] [address] CONSULTATION Name: JAROD GANDARA Room: [address] IN M.R.#: [id number] Admission: 04/04/20 Attend Phys: Leana Ricketts MD Discharge: 04/06/20 Date of : 62 Report #: [id number] THIS REPORT FOR: cc: Edin Silveira MD, Bruce D. MD ~ Lance Neil MD DATE OF SERVICE: 04/05/2020 HISTORY OF PRESENT ILLNESS: This is a 59-year-old female patient who was seen by me for seizure. She is a poor historian. She tells me that she had a stroke. When I get the further history, she tells me she was in [facility]. They diagnosed her with her aneurysm. They transferred her to [facility]. She believes she had coiling since then. 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 She went to rehabilitation. She believes it was at [facility] and then she got strength back, but then she has been falling down. She does not believe she passes out. She said she had one seizure before. She has been on Keppra according to her. She said she was on Keppra before her aneurysms ruptured. REVIEW OF SYSTEMS: A 14-point review of system was carried out. She has a history of falls. She believes she had an aneurysm, which ruptured. It was treated. She said she had stomach surgery. She has trouble with opiate dependence. She has a skin ecchymosis all over the body. When she came in, she was pretty hypotensive. It would appear that she is anemic. To me, she tells me she has not taken any alcohol since last 6 weeks. That is a history, which is different than she has provided previously. She does have some kidney problems. She has a history of anxiety. She does not think she has any new eye, ENT, cardiac, respiratory, , musculoskeletal, constitutional, hematological, psychiatric, throat, allergic symptom associated with present symptomatology and which has not been described above. PAST MEDICAL HISTORY: Positive for stroke, which appeared to be secondary to an aneurysm. FAMILY HISTORY: Negative for early age stroke. SOCIAL HISTORY: She says she has not drunk any alcohol for 6 weeks, but she used to drink, but she will not specify how much. She does smoke. PHYSICAL EXAMINATION: Difficult. She is alert. She is responsive. She tells me it is February. So her memory is poor and she is responding to it not very persistently. Her fund of knowledge is also diminished. Cranial nerve examination 2-12 was attempted. Her exam is difficult, but does not appear to be showing any focality. She is still weak on the left side as compared to the [address] [place] [address] CONSULTATION Name: JAROD GANDARA Renetta Room: [address] IN [facility].#: [id number] Admission: 04/04/20 Attend Phys: Leana Ricketts MD Discharge: 04/06/20 Date of : 62 Report #: [id number] right side. Reflexes do look somewhat there. I believe the left plantar is upgoing, but difficult to say it is not withdraw, but tone and position look about the same. I could not visualize the fundus. She does have some abnormality with cerebellar sign, like wsev-ft-kyen, but monnhy-xw-zezn. I do not think there is marked abnormality. She does not have any edema, cyanosis or jaundice. When she came in, her blood pressure was only 70, now it is 91, pulse is 63, respirations 80, 90, 75. LABORATORY DATA: Her hemoglobin is only 8.5, MCV is 102. Lactic acid when she came in was 5.4. B12 and TSH in late 2019 was unremarkable. She did have a CT scan, which does not show any acute changes. IMPRESSION: In this patient, there are multiple things going on, which can affect this patient's condition. She does have a left sided weakness and that may be contributing to her symptoms, PT, OT evaluation is pending and we will see what this is. She may need some rehabilitation for fall prevention technique, but she also needs some other workup. I will get an EEG to make sure there is no recurrence of seizure and if there is, we may increase the dose of Keppra, but she is also hypotensive and anemic and that need to be addressed by tool chaser. We will see if her coils are compatible with MRI and if they are, we might do an MRI in this patient. She thinks it is, but we will try to find out. This is all which was discussed with the patient and she wants to follow this plan. Thank you very much for this referral and if you have any question, please feel free to contact me. <ELECTRONICALLY SIGNED> By: Lance Neil MD 04/07/20 1457 1516 1537Lance Neil MD /nt
--- NOTE | 2020-04-07 14:57 | EEG ---
[address] [address] EEG STUDY REPORT Name: JAROD GANDARA Room: [address] IN M.R.#: [id number] Admission: 04/04/20 Attend Phys: Leana Ricketts MD Discharge: 04/06/20 Date of : 62 Report #: [id number] THIS REPORT FOR: cc: Edin Silveira MD, Bruce D. MD ~ Lance Neil MD DATE OF SERVICE: 04/06/2020 The patient is being evaluated for the possibility of seizure. EEG was done by placing the electrode by standard 10-20 system of electrode placement. Both referential and sequential montages were used for recording. Background activity in this patient's EEG is about 8-9 Hz and 30 microvolt. It is a symmetrical activity. Photic stimulation is unremarkable. Throughout the record, no active epileptiform activity was noticed. IMPRESSION: This patient's EEG is intermixed with some theta range slowing on both sides. That is a nonspecific abnormality, which can occur with dementia, encephalopathy, effect of psychotropic medication, etc. No active epileptiform activity was noticed. Clinical correlation is recommended. Thank you very much for this referral. <ELECTRONICALLY SIGNED> By: Lance Neil MD 04/07/20 1457 1151 1158Lance Neil MD /nt
== END 2020-04-06 13:50 | disposition home health service (06) | DRG 315 ==
LOC: M.ERS 13:22 → M.2W 17:31 → M.TBA-ER 17:31 → M.2W 20:39
PROVIDERS: Emergency Medicine Emergency Medical Services; Internal Medicine; ADMIT Internal Medicine; ATTEND Internal Medicine
PROC: 02HV33Z Insertion of Infusion Device into Superior Vena Cava, Percutaneous Approach (ICD-10-PCS; principal; 2020-04-04)
DX: I95.9 Hypotension, unspecified (principal); E44.0 Moderate protein-calorie malnutrition; E87.2 Acidosis; R56.9 Unspecified convulsions; E03.9 Hypothyroidism, unspecified; E87.6 Hypokalemia; I10 Essential (primary) hypertension; G89.29 Other chronic pain; E83.42 Hypomagnesemia; F17.210 Nicotine dependence, cigarettes, uncomplicated; E86.0 Dehydration; F10.10 Alcohol abuse, uncomplicated; Y90.9 Presence of alcohol in blood, level not specified; F41.9 Anxiety disorder, unspecified; Z20.822 Contact with and (suspected) exposure to COVID-19; Z98.84 Bariatric surgery status; I25.2 Old myocardial infarction; Z86.73 Personal history of transient ischemic attack (TIA), and cerebral infarction without residual deficits; Z90.49 Acquired absence of other specified parts of digestive tract; Z88.1 Allergy status to other antibiotic agents; Z88.0 Allergy status to penicillin; Z88.2 Allergy status to sulfonamides; Z79.82 Long term (current) use of aspirin; Z79.899 Other long term (current) drug therapy; Z79.01 Long term (current) use of anticoagulants; Z68.23 Body mass index [BMI] 23.0-23.9, adult

== ENCOUNTER 2020-04-10 16:08 | Inpatient (IN) | payer MEDICARE, MEDICAID ==
[~2020-04-10] VITALS: Ht 162.6 cm; Wt 59.4 kg
[~2020-04-10 16:08] MED LIST changes: +FOLIC ACID1 MG PO; +VITAMIN B-1100 M2 PO
[2020-04-10 16:10] VITALS: BP 220/181
--- NOTE | 2020-04-10 16:45 | NUR ---
SECOND IV STARTED BY DR. NOBLE
[2020-04-10 17:04] LABS: ABSOLUTE BASOPHILS 0.1 thou/uL (0.0-0.2); ABSOLUTE LYMPHOCYTES 1.1 thou/uL (0.8-5.3); ABSOLUTE MONOCYTES 1.3 thou/uL (0.0-1.2); ABSOLUTE NEUTROPHILS 12.7 thou/uL (1.6-8.1); BASOPHILS 0.5 %; HEMATOCRIT 41.6 % (37.0-47.0); HEMOGLOBIN 13.8 gm/dL (12.0-15.0); LYMPHOCYTES 7.3 %; MCH 32.3 pg (26.0-34.0); MCV 97.7 fL (80.0-100.0); MONOCYTES 8.8 %; MPV 8.7 fl. (7.2-11.1); NUCLEATED RBCS 0 /100WBC; PLATELET COUNT* 805 thou/uL (150-400); POLYS 83.4 %; RBC 4.26 mil/uL (4.20-5.00); RDW-CV 15.2 % (10.5-14.5); WBC 15.2 thou/uL (4.0-11.0)
[2020-04-10 17:07] LABS: BE -3.6 mmol/L (-2 to +3); PCO2 VENOUS 32.8 mmHg (41.0-51.0); PO2 VENOUS 166.3 mmHg (35.0-45.0)
[2020-04-10 17:18] LABS: CALCIUM 8.5 mg/dL (8.5-10.1); POTASSIUM 3.9 mmol/L (3.5-5.1); PROTIME 10.8 Seconds (9.20-11.50)
[2020-04-10 17:23] LABS: URINE BLOOD NEGATIVE (Negative); URINE CLARITY CLEAR; URINE COLOR YELLOW; URINE GLUCOSE-RANDOM TRACE (Negative); URINE KETONES NEGATIVE (Negative); URINE LEUKOCYTES-REFLEX NEGATIVE (Negative); URINE NITRITE-REFLEX NEGATIVE (Negative); URINE PROTEIN 1+ (Negative); URINE SPECIFIC GRAVITY 1.015 (1.005-1.030)
[2020-04-10 17:23] LABS: ALBUMIN 2.7 g/dL (3.4-5.0); TOTAL BILIRUBIN 1.1 mg/dL (<0.1-1.0); TOTAL PROTEIN 6.6 g/dL (6.4-8.2)
[2020-04-10 17:25] LABS: ICTOTEST (BILI CONFIRMATORY) Negative (Negative); URINE BILIRUBIN 1+ (Negative)
[2020-04-10 17:26] LABS: AMP/METHAMP Negative (Negative); BARBITURATES Negative (Negative); BENZODIAZEPINES POSITIVE (Negative); COCAINE Negative (Negative); METHADONE Negative (Negative); OPIATES Negative (Negative); PCP Negative (Negative); THC Negative (Negative)
[2020-04-10 18:50] VITALS: BP 154/112
--- NOTE | 2020-04-10 18:56 | NUR ---
PT ARRIEVED TO UNIT AT 1845. SIDE RAILS PADDED X4, CALL LIGHT IN REACH, BED LOW AND LOCKED, BED ALARM ON, TELE APPLIED. WILL GIVE REPORT TO NIGHT RN.
[2020-04-10 19:39] VITALS: BP 128/87
[2020-04-11] VITALS (10 sets, daily range): BP systolic 130–193; BP diastolic 4–117
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
[2020-04-11 04:20] LABS: ABSOLUTE BASOPHILS 0.1 thou/uL (0.0-0.2); ABSOLUTE LYMPHOCYTES 2.6 thou/uL (0.8-5.3); ABSOLUTE MONOCYTES 1.6 thou/uL (0.0-1.2); ABSOLUTE NEUTROPHILS 11.1 thou/uL (1.6-8.1); BASOPHILS 0.4 %; EOSINOPHILS 0.1 %; LYMPHOCYTES 17.1 %; MCH 33.6 pg (26.0-34.0); MCHC 33.9 g/dL (28.0-37.0); MCV 99.3 fL (80.0-100.0); MONOCYTES 10.6 %; MPV 8.9 fl. (7.2-11.1); NUCLEATED RBCS 0 /100WBC; POLYS 71.8 %; RBC 3.42 mil/uL (4.20-5.00); RDW-CV 15.1 % (10.5-14.5); WBC 15.4 thou/uL (4.0-11.0)
[2020-04-11 04:25] LABS: CALCIUM 7.1 mg/dL (8.5-10.1); CREATININE 1.3 mg/dL (0.6-1.3); POTASSIUM 3.4 mmol/L (3.5-5.1)
[2020-04-11 04:26] LABS: HEMOGLOBIN 11.5 gm/dL (12.0-15.0); PLATELET COUNT* 416 thou/uL (150-400)
--- NOTE | 2020-04-11 10:47 | EKG ---
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: CCD : 1960 Requested By: Franki Gaspar Order Number: [id number] MD: Armando Ramos Measurements Intervals [place] Rate: 135 P: 88 AL: 116 QRS: 66 QRSD: 74 T: 55 QT: 313 QTc: 470 Interpretive Statements Sinus tachycardia septal q waves Borderline ST depression, anterolateral leads Compared to ECG 04/04/2020 13:29:38 Sinus rhythm no longer present Prolonged QT interval no longer present Electronically Signed On 04-11-2020 10:47:21 IMMIGRATION OFFICER by Armando Ramos [email or web address] <ELECTRONICALLY SIGNED> By: Armando Ramos MD, FACC 04/11/20 1047 1618 1618 Armando Ramos MD, FAC /EPI
--- NOTE | 2020-04-11 13:22 | NUR ---
ASSUMED CARE OF PATIENT THIS AM. PATIENT IS ALERT CONFUSED, SHE C/O PAIN TO HER LEGS. TELE SHOWS ST. PATIENT BP IS ALSO ELEVATED. PATIENT MEDICATED FOR PAIN, INCREASED HR AN BP. SEE APR. LEFT LEG IS WEEPING LARGE AMOUNTS OF YELLOW FLUID. LEGT LEG WRAPPED WITH KERLEX. NO SEIZURE ACTIVITY. HR DOWN TO 90S TO 100 AND BP IMPROVED SINCE INTERVENTIONS. SEE FLOW SHEET. PATIENT IS ON 1:1 OBSERVATION FOR PATIENT SAFETY. MEDICATED FOR PAIN AND ANXIETY. WILL CONTINUE TO MONITOR PATIENT STATUS. NO FALLS OR INJURY.
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
[2020-04-12 05:20] LABS: CALCIUM 6.9 mg/dL (8.5-10.1); CREATININE 1.1 mg/dL (0.6-1.3); POTASSIUM 3.5 mmol/L (3.5-5.1)
[2020-04-12 05:26] VITALS: BP 165/87
[2020-04-12 07:07] LABS: EOSINOPHILS 0.4 %; HEMOGLOBIN 9.7 gm/dL (12.0-15.0); MPV 7.8 fl. (7.2-11.1)
[2020-04-12 07:09] LABS: ABSOLUTE BASOPHILS 0.1 thou/uL (0.0-0.2); ABSOLUTE LYMPHOCYTES 1.8 thou/uL (0.8-5.3); ABSOLUTE MONOCYTES 1.2 thou/uL (0.0-1.2); ABSOLUTE NEUTROPHILS 7.7 thou/uL (1.6-8.1); BASOPHILS 0.7 %; HEMATOCRIT 28.7 % (37.0-47.0); LYMPHOCYTES 17.1 %; MCH 33.7 pg (26.0-34.0); MCHC 33.7 g/dL (28.0-37.0); MCV 100.1 fL (80.0-100.0); MONOCYTES 10.8 %; NUCLEATED RBCS 0 /100WBC; PLATELET COUNT* 224 thou/uL (150-400); RBC 2.87 mil/uL (4.20-5.00); RDW-CV 14.6 % (10.5-14.5); WBC 10.8 thou/uL (4.0-11.0)
[2020-04-12 09:00] VITALS: BP 160/76
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
[2020-04-12 11:43] VITALS: BP 146/66
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
[2020-04-12 16:53] VITALS: BP 135/64
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
== END 2020-04-12 21:05 | disposition short-term general hospital (02) | DRG 871 ==
LOC: M.ERS 16:08 → M.TBA-ER 17:13 → M.2W 17:13
PROVIDERS: Family Medicine; ADMIT Internal Medicine; ATTEND Internal Medicine
DX: A41.9 Sepsis, unspecified organism (principal); N17.0 Acute kidney failure with tubular necrosis; T24.322A Burn of third degree of left knee, initial encounter; E44.0 Moderate protein-calorie malnutrition; G40.909 Epilepsy, unspecified, not intractable, without status epilepticus; I10 Essential (primary) hypertension; I25.10 Atherosclerotic heart disease of native coronary artery without angina pectoris; E03.9 Hypothyroidism, unspecified; Z20.822 Contact with and (suspected) exposure to COVID-19; X08.8XXA Exposure to other specified smoke, fire and flames, initial encounter; Z86.73 Personal history of transient ischemic attack (TIA), and cerebral infarction without residual deficits; Z98.84 Bariatric surgery status; I25.2 Old myocardial infarction; Z79.82 Long term (current) use of aspirin; Z79.899 Other long term (current) drug therapy; Z88.1 Allergy status to other antibiotic agents; Z88.0 Allergy status to penicillin; Z88.2 Allergy status to sulfonamides; Z88.8 Allergy status to other drugs, medicaments and biological substances; Y93.89 Activity, other specified; Y92.89 Other specified places as the place of occurrence of the external cause; Y99.8 Other external cause status; Z68.22 Body mass index [BMI] 22.0-22.9, adult